=== PATIENT | female | born 1970 | race Caucasian/White ===

== ENCOUNTER → 2017-12-31 | Day surgery (SDC) | payer BC ==
[2017-12-25 13:28] LABS: BASOPHILS % 0.3 % (0.0-1.0); EOSINOPHILS # (AUTO) 0.1 (0.0-0.4); EOSINOPHILS % 1.6 % (0.0-6.0); HEMATOCRIT 38.6 % (34.2-44.1); HEMOGLOBIN 13.2 g/dL (12.0-16.0); LYMPHOCYTES # (AUTO) 1.6 (1.0-3.2); LYMPHOCYTES % 22.8 % (18.0-39.1); MEAN CORPUSCULAR HEMOGLOBIN 31.1 pg (28-32); MEAN CORPUSCULAR HGB CONC 34.2 g/dL (31-35); MONOCYTES # (AUTO) 0.4 (0.2-0.8); MONOCYTES % 5.2 % (4.4-11.3); NEUTROPHILS # (AUTO) 4.9 (2.1-6.9); NEUTROPHILS % 69.8 % (38.7-80.0); PLATELET COUNT 160 x10e3/uL (140-360); RED BLOOD COUNT 4.24 x10e6/uL (3.6-5.1)
[~2017-12-31] MED LIST: ATENOLOL50 MG PO; FENTANYL CITRATE/PF 100MCG/2 ML INJ ONE; LEVOTHYROXINE25 MCG PO; METOPROLOL TART50 MG PO; MIDAZOLAM HCL 2 MG/2 ML VIAL ONE; OMEPRAZOLE40 MG PO; PROPOFOL IV EMULSION 10 MG/ML 20 ML VIAL ONE
--- NOTE | 2017-12-31 15:07 | Operative Report ---
DATE OF PROCEDURE: December 31, 2017 REFERRING PHYSICIAN: Dr. Alma Larsen PROCEDURE PERFORMED: Esophagogastroduodenoscopy with biopsies. INDICATIONS FOR EGD: Upper abdominal pain, bloating, nausea. MEDICATION: Patient was done under MAC. Please see anesthesiologist's note. PROCEDURE: With the patient in the left lateral decubitus position, the flexible fiberoptic Olympus gastroscope was introduced into the esophagus under direct visualization without any difficulty. There was some patchy erythema noted in the distal esophagus. The scope was then advanced with ease into the stomach. Mucosa overlying the antrum and the body revealed some patchy erythema and moderate edema, and biopsies were obtained and sent to stain for H. pylori. Several hyperplastic-appearing polyps were noted in the body of the stomach, and some were partially excised with cold biopsy forceps. Pylorus appeared to be of normal contour and shape. It was intubated with ease, and the scope was advanced all the way to the 2nd portion of the duodenum. Biopsies were obtained from the proximal 2nd portion to rule out sprue. Mucosa overlying the duodenal bulb appeared to be within normal limits. The scope was then withdrawn back into the stomach and retroflexed. The mucosa overlying the fundus and the cardia appeared to be within normal limits. The scope was then straightened out. The stomach was decompressed. Scope was subsequently withdrawn. Patient tolerated the procedure well. IMPRESSION 1. Distal esophagitis, mild. 2. Gastritis, biopsied. Biopsy sent to stain for H. pylori. 3. Gastric polyps, body, some partially excised with cold biopsy forceps. 4. Rule out sprue. PLAN: Follow up histology. Increase Protonix to 40 mg 1 p.o. a.c. b.i.d. Job#: [id number] cc:ALMA LARSEN DO
== END | disposition home or self-care (01) ==
LOC: OR 11:58
PROVIDERS: ATTEND Internal Medicine Gastroenterology
DX: K29.70 Gastritis, unspecified, without bleeding (principal); K31.7 Polyp of stomach and duodenum; K20.9 Esophagitis, unspecified; K21.9 Gastro-esophageal reflux disease without esophagitis; K76.0 Fatty (change of) liver, not elsewhere classified; E03.9 Hypothyroidism, unspecified; R03.0 Elevated blood-pressure reading, without diagnosis of hypertension; Z88.6 Allergy status to analgesic agent; Z01.812 Encounter for preprocedural laboratory examination; Z68.34 Body mass index [BMI] 34.0-34.9, adult
CPT/HCPCS: 36415; 43239; 81025; 85025; J2250

== ENCOUNTER 2018-04-14 11:11 | Outpatient (RCR) | payer OTHER ==
[~2018-04-14 11:11] MED LIST changes: +COLLAGENASE OINTMENT 30 GM TUBE ONE; -FENTANYL CITRATE/PF 100MCG/2 ML INJ ONE; +LIDOCAINE/PRILOCAINE 2.5-2.5% KIT ONE; -MIDAZOLAM HCL 2 MG/2 ML VIAL ONE; +MUPIROCIN 2% OINT 22 GM TUBE ONE; -PROPOFOL IV EMULSION 10 MG/ML 20 ML VIAL ONE
[2018-04-14] MEDS ORDERED: COLLAGENASE OINTMENT 30 GM TUBE ONE (11:56)
[2018-04-14] MEDS ORDERED: MUPIROCIN 2% OINT 22 GM TUBE ONE (11:56)
[2018-04-14] MEDS ORDERED: LIDOCAINE/PRILOCAINE 2.5-2.5% KIT ONE (11:56)
== END 2018-04-16 ==
LOC: WCC 11:11
PROVIDERS: ATTEND Family Medicine
DX: S51.801A Unspecified open wound of right forearm, initial encounter (principal); S51.851A Open bite of right forearm, initial encounter; E03.9 Hypothyroidism, unspecified; K21.9 Gastro-esophageal reflux disease without esophagitis

== ENCOUNTER 2018-05-05 11:27 | Outpatient (RCR) | payer OTHER ==
[~2018-05-05 11:27] MED LIST changes: -COLLAGENASE OINTMENT 30 GM TUBE ONE; -LIDOCAINE/PRILOCAINE 2.5-2.5% KIT ONE; -MUPIROCIN 2% OINT 22 GM TUBE ONE
== END 2018-05-17 ==
LOC: WCC 11:27
PROVIDERS: ATTEND Family Medicine
DX: S51.801A Unspecified open wound of right forearm, initial encounter (principal); S51.851A Open bite of right forearm, initial encounter; E03.9 Hypothyroidism, unspecified; K21.9 Gastro-esophageal reflux disease without esophagitis

== ENCOUNTER 2018-06-16 09:16 | Outpatient (RCR) | payer OTHER | END 2018-06-17 | LOC: WCC 09:16 | PROVIDERS: ATTEND Family Medicine | DX: S51.801A Unspecified open wound of right forearm, initial encounter (principal); S51.851A Open bite of right forearm, initial encounter; E03.9 Hypothyroidism, unspecified; K21.9 Gastro-esophageal reflux disease without esophagitis ==

== ENCOUNTER 2018-07-14 02:00 | Outpatient (RCR) | payer OTHER | END 2018-07-15 | LOC: WCC 02:00 | PROVIDERS: ATTEND Family Medicine | DX: S51.851A Open bite of right forearm, initial encounter (principal); E03.9 Hypothyroidism, unspecified; F43.11 Post-traumatic stress disorder, acute; K21.9 Gastro-esophageal reflux disease without esophagitis ==

== ENCOUNTER 2018-08-11 11:11 | Outpatient (RCR) | payer OTHER | END 2018-08-15 | LOC: WCC 11:11 | PROVIDERS: ATTEND Family Medicine | DX: S51.801A Unspecified open wound of right forearm, initial encounter (principal); S51.851A Open bite of right forearm, initial encounter; E03.9 Hypothyroidism, unspecified; F43.11 Post-traumatic stress disorder, acute; K21.9 Gastro-esophageal reflux disease without esophagitis ==

== ENCOUNTER 2018-09-01 14:29 | Outpatient (RCR) | payer OTHER | END 2018-09-14 | LOC: WCC 14:29 | PROVIDERS: ATTEND Family Medicine | DX: S51.851A Open bite of right forearm, initial encounter (principal); E03.9 Hypothyroidism, unspecified; F43.11 Post-traumatic stress disorder, acute; K21.9 Gastro-esophageal reflux disease without esophagitis ==

== ENCOUNTER 2018-09-22 15:05 | Outpatient (RCR) | payer OTHER | END 2018-10-15 | LOC: WCC 15:05 | PROVIDERS: ATTEND Family Medicine | DX: S51.851A Open bite of right forearm, initial encounter (principal); E03.9 Hypothyroidism, unspecified; F43.11 Post-traumatic stress disorder, acute; K21.9 Gastro-esophageal reflux disease without esophagitis ==

== ENCOUNTER → 2019-03-28 | Day surgery (SDC) | payer BC ==
[2019-03-24 10:55] LABS: ANION GAP 14.9 mmol/L (8-16); BLOOD UREA NITROGEN 9 mg/dL (7-26); BUN/CREATININE RATIO 10 (6-25); CALCIUM 8.6 mg/dL (8.4-10.2); CARBON DIOXIDE 25 mmol/L (22-29); CHLORIDE 100 mmol/L (98-107); CREATININE, SERUM 0.91 mg/dL (0.57-1.11); EST GLOMERULAR FILTRATION RATE > 60 ML/MIN (60-); GLUCOSE 200 mg/dL (74-118); POTASSIUM 3.9 mmol/L (3.5-5.1); SODIUM 136 mmol/L (136-145)
[~2019-03-28] MED LIST changes: +FENTANYL CITRATE/PF 100MCG/2 ML INJ ONE; +INSULIN REGULAR, HUMAN 100 UNIT/1 ML 3ML VIAL ONE; +METFORMIN HCL500 M2 PO; +MIDAZOLAM HCL 2 MG/2 ML VIAL ONE; +PROPOFOL IV EMULSION 10 MG/ML 20 ML VIAL ONE
--- OUTSIDE RECORDS SUMMARY | 2019-03-28 06:09 | XMS REPORT ---
Author Author [facility] Address Unknown Phone Unavailable Care Team Providers Care Assembly Machine Tool Setter Name Role Phone ELIDA LOYD Unavailable Unavailable Problems This patient has no known problems. Allergies, Adverse Reactions, Alerts This patient has no known allergies or adverse reactions. Medications This patient has no known medications. Encounters Start Date/Time End Date/Time Encounter Type Admission Type Attending Clinicians Care Facility Care Department Encounter ID 2018-03-06 17:24:00 2018-03-06 17:24:00 Emergency E [facility] [id number] Results Test Description Test Time Test Comments Text Results Atomic Results Result Comments FOREARM RIGHT 2 VIEW 2018-05-27 12:04:00 [place] [address] Patient Name: ABIMBOLA HENDRIX MR #: [id number] : 1970 Age/Sex: 47/F Req #: [id number] Adm Physician: Ordered by: ELIDA LOYD MD Report #: [id number] Location: [facility] Room/Bed: Procedure: [id number] DX/FOREARM RIGHT 2 VIEW Exam Date: 05/27/18 Exam Time: 1130 REPORT STATUS: Signed Exam: right forearm AP and lateral. History: St atus post dog bite Comparison: None. Findings: There is normal bone mineralization. No acute, displaced fracture or dislocation. Joint spaces preserved. No abnormal soft tissue calcification or soft tissue defect. No soft tissue swelling or significant soft tissue defect. Impression: 1. No acute abnormalities. Signed by: Dr. Estuardo Garcia M.D. on 05/27/2018 12:04 PM Dictated By: ESTUARDO GARCIA MD 03 Transcribed By: JADEN on 05/27/181203 COPY TO: ELIDA LOYD MD WRIST COMPLETE RIGHT 2018-05-27 12:03:00 [place] [address] Patient Name: ABIMBOLA HENDRIX MR #: [id number] : 1970 Age/Sex: 47/F Req #: [id number] Adm Physician: Ordered by: ELIDA LOYD MD Report #: [id number] Location: [facility] Room/Bed: Procedure: [id number] DX/WRIST COMPLETE RIGHT Exam Date: 05/27/18 Exam Time: 1130 REPORT STATUS: Signed Exam: Right wrist Series. History: Status post d og bite Comparison: None. Findings: 3 views of the right wrist. There is normal bone mineralization. Negative for acute, displaced fracture or dislocation. The joint spaces are preserved. No abnormal soft tissue calcification or mass. No soft tissue swelling or soft tissue defect.. Impression: 1. Unremarkable right wrist series. Signed by: Dr. Estuardo Garcia M.D. on 05/27/2018 12:04 PM Dictated By: ESTUARDO GARCIA MD 03 Transcribed By: JADEN on 05/27/181203 COPY TO: ELIDA LOYD MD
[2019-03-28 08:45] VITALS: BP 112/80
--- NOTE | 2019-03-28 09:36 | Operative Report ---
DATE OF PROCEDURE: 03/28/2019 SURGEON: Hugo Trammell MD PREOPERATIVE DIAGNOSES: 1. Hiatal hernia. 2. Chronic gastroesophageal reflux disease. POSTOPERATIVE DIAGNOSES: 1. Hiatal hernia. 2. Chronic gastroesophageal reflux disease. 3. Distal gastritis. PREOPERATIVE INDICATION: Assess for mucosal disease. PROCEDURES: Esophagogastroduodenoscopy with distal gastric biopsy x2 (CPT 88423). ANESTHESIA: Moderate sedation with IV propofol. ASSISTANTS: None. FLUIDS: As per anesthesia. ESTIMATED BLOOD LOSS: Minimal. DRAINS: None. COMPLICATIONS: None. SPECIMENS: Gastric antral biopsies x2 with cold forceps. GRAFTS: None. FINDINGS: 1. Moderate size hiatal hernia. 2. Distal gastritis in the prepyloric/antral region. DESCRIPTION OF PROCEDURE: The patient was brought to the endoscopy suite and was sedated with IV propofol. A preprocedure pause was performed. An adult-sized endoscope was introduced to the oropharynx and guided to the 2nd portion of the duodenum. No duodenal abnormalities were noted. There was streaky gastritis and erythema in the distal stomach, which was biopsied x2 with cold forceps. There was a hiatal hernia present as we had known prior to the procedure. Prior to removing the endoscope, the stomach was desufflated. The patient tolerated the procedure well. Type of wound is type 1, clean. Hugo Trammell MD [facility] /[id number]
== END | disposition home or self-care (01) ==
LOC: OR 06:02
PROVIDERS: ATTEND Surgery
DX: K21.9 Gastro-esophageal reflux disease without esophagitis (principal); K29.70 Gastritis, unspecified, without bleeding; K25.9 Gastric ulcer, unspecified as acute or chronic, without hemorrhage or perforation; K44.9 Diaphragmatic hernia without obstruction or gangrene; G58.9 Mononeuropathy, unspecified; I10 Essential (primary) hypertension; I83.90 Asymptomatic varicose veins of unspecified lower extremity; I49.3 Ventricular premature depolarization; E03.9 Hypothyroidism, unspecified; E11.9 Type 2 diabetes mellitus without complications; E66.01 Morbid (severe) obesity due to excess calories; Z91.013 Allergy to seafood; Z01.810 Encounter for preprocedural cardiovascular examination; Z01.812 Encounter for preprocedural laboratory examination; Z79.84 Long term (current) use of oral hypoglycemic drugs; Z68.34 Body mass index [BMI] 34.0-34.9, adult
CPT/HCPCS: 36415 ×2; 43239; 80048; 81025; 82948; 93005; J2250; J2704; J3010; 43235; J1817

== ENCOUNTER 2019-06-29 10:09 | Outpatient (RCR) | payer OTHER ==
[~2019-06-29 10:09] MED LIST changes: -FENTANYL CITRATE/PF 100MCG/2 ML INJ ONE; -INSULIN REGULAR, HUMAN 100 UNIT/1 ML 3ML VIAL ONE; -MIDAZOLAM HCL 2 MG/2 ML VIAL ONE; -PROPOFOL IV EMULSION 10 MG/ML 20 ML VIAL ONE
== END 2019-07-16 ==
LOC: OT 10:09
PROVIDERS: ATTEND Family Medicine
DX: R29.898 Other symptoms and signs involving the musculoskeletal system (principal)

== ENCOUNTER → 2019-08-05 | Outpatient (CLI) | payer BC ==
[~2019-08-05] MED LIST changes: +METFORMIN HCL500 MG PO
[2019-08-05 15:55] LABS: BASOPHILS % 0.4 % (0.0-1.0); EOSINOPHILS # (AUTO) 0.1 (0.0-0.4); EOSINOPHILS % 1.1 % (0.0-6.0); HEMATOCRIT 43.2 % (34.2-44.1); HEMOGLOBIN 14.5 g/dL (12.0-16.0); LYMPHOCYTES # (AUTO) 1.9 (1.0-3.2); LYMPHOCYTES % 26.8 % (18.0-39.1); MEAN CORPUSCULAR HEMOGLOBIN 31.5 pg (28-32); MEAN CORPUSCULAR HGB CONC 33.6 g/dL (31-35); MEAN CORPUSCULAR VOLUME 93.7 fL (81-99); MONOCYTES # (AUTO) 0.3 (0.2-0.8); MONOCYTES % 4.2 % (4.4-11.3); NEUTROPHILS # (AUTO) 4.8 (2.1-6.9); NEUTROPHILS % 67.1 % (38.7-80.0); PLATELET COUNT 128 x10e3/uL (140-360); RED BLOOD COUNT 4.61 x10e6/uL (3.6-5.1); RED CELL DISTRIBUTION WIDTH 12.8 % (11.7-14.4)
[2019-08-05 16:41] LABS: ANION GAP 12.8 mmol/L (8-16); BLOOD UREA NITROGEN 6 mg/dL (7-26); BUN/CREATININE RATIO 8 (6-25); CALCIUM 8.7 mg/dL (8.4-10.2); CARBON DIOXIDE 29 mmol/L (22-29); CHLORIDE 100 mmol/L (98-107); CREATININE, SERUM 0.75 mg/dL (0.57-1.11); EST GLOMERULAR FILTRATION RATE > 60 ML/MIN (60-); GLUCOSE 173 mg/dL (74-118); POTASSIUM 3.8 mmol/L (3.5-5.1); SODIUM 138 mmol/L (136-145)
== END ==
LOC: DX 15:29 → EDSTATUS 08-08 07:30
PROVIDERS: ATTEND Surgery
DX: Z01.818 Encounter for other preprocedural examination (principal); K44.9 Diaphragmatic hernia without obstruction or gangrene; E66.01 Morbid (severe) obesity due to excess calories
CPT/HCPCS: 36415; 80048; 85025; 93005

== ENCOUNTER 2019-09-26 06:55 | Inpatient (IN) | payer BC, OTHER ==
[2019-09-22 14:55] LABS: BASOPHILS % 0.5 % (0.0-1.0); EOSINOPHILS # (AUTO) 0.1 (0.0-0.4); EOSINOPHILS % 1.6 % (0.0-6.0); HEMATOCRIT 38.8 % (34.2-44.1); HEMOGLOBIN 13.1 g/dL (12.0-16.0); LYMPHOCYTES # (AUTO) 1.8 (1.0-3.2); LYMPHOCYTES % 29.1 % (18.0-39.1); MEAN CORPUSCULAR HEMOGLOBIN 30.8 pg (28-32); MEAN CORPUSCULAR HGB CONC 33.8 g/dL (31-35); MEAN CORPUSCULAR VOLUME 91.1 fL (81-99); MONOCYTES # (AUTO) 0.3 (0.2-0.8); MONOCYTES % 4.7 % (4.4-11.3); NEUTROPHILS # (AUTO) 4.1 (2.1-6.9); NEUTROPHILS % 63.9 % (38.7-80.0); PLATELET COUNT 122 x10e3/uL (140-360); RED BLOOD COUNT 4.26 x10e6/uL (3.6-5.1); RED CELL DISTRIBUTION WIDTH 12.9 % (11.7-14.4)
[2019-09-22 15:09] LABS: ANION GAP 10.9 mmol/L (8-16); BLOOD UREA NITROGEN 8 mg/dL (7-26); BUN/CREATININE RATIO 9 (6-25); CALCIUM 8.8 mg/dL (8.4-10.2); CARBON DIOXIDE 29 mmol/L (22-29); CHLORIDE 100 mmol/L (98-107); CREATININE, SERUM 0.94 mg/dL (0.57-1.11); EST GLOMERULAR FILTRATION RATE > 60 ML/MIN (60-); GLUCOSE 268 mg/dL (74-118); POTASSIUM 3.9 mmol/L (3.5-5.1); SODIUM 136 mmol/L (136-145)
[~2019-09-26] VITALS: Ht 170.2 cm; Wt 92.5 kg
[2019-09-26] MEDS ORDERED: LIDOCAINE HCL (LTA) 4 ML SOLN ONE (07:02)
[2019-09-26] MEDS ORDERED: SUGAMMADEX SODIUM 200 MG/2 ML VIAL IV ONE (07:02)
[2019-09-26] MEDS ORDERED: SCOPOLAMINE 1.5 MG PATCH ONE (07:02)
[2019-09-26] MEDS ORDERED: ACETAMINOPHEN 1000 MG/100 ML 100 ML IV ONE (07:02)
--- OUTSIDE RECORDS SUMMARY | 2019-09-26 07:06 | XMS REPORT | Summary of Care ---
Author Author [facility] Address Unknown Phone Unavailable Care Team Providers Care Supplies Packer Name Role Phone Vijay Nunez PCP Reason for Visit * Reason Comments Results Encounter Details Care Team Description Date Type Department Juan Holm MD [address] [facility] [address] [place] [address] Results 09/09/2019 Telephone [facility] - Apartment Leasing Consultant, [address] [address] Allergies No Known Allergiesdocumented as of this encounter (statuses as of 09/09/2019) Medications End Date Status Medication Sig Dispensed Refills Start Date Active levothyroxine (LEVOXYL) Take 75 mcg 0 75 mcg tablet by mouth every morning. Active omeprazole 40 mg capsule Take 40 mg by 0 mouth daily. documented as of this encounter (statuses as of 09/09/2019) Active Problems Not on filedocumented as of this encounter (statuses as of 09/09/2019) Social History Date Tobacco Use Types Packs/Day Years Used Never Assessed Sex Assigned at Date Recorded Not on file Industry Job Start Date Occupation Not on file Not on file Not on file Travel End Travel History Travel Start No recent travel history available. Date Recorded COVID-19 Exposure Response 09/09/2019 5:40 AM CDT In the last month, have you been in contact with No / Unsure someone who was confirmed or suspected to have Coronavirus / COVID-19? documented as of this encounter Last Filed Vital Signs Not on filedocumented in this encounter Plan of Treatment Health Maintenance Due Date Last Done Comments DTaP,Tdap,and Td Vaccines 07/22/1982 (1 - Tdap) PAP SMEAR 07/22/1992 Breast Cancer Screening 2011 (MAMMOGRAM) INFLUENZA VACCINE (#1) 2019 PNEUMOCOCCAL 0-64 YEARS Aged Out No longer elig ible based COMBINED SERIES on patient's age to complete this topic documented as of this encounter Results Not on filedocumented in this encounter Insurance Type Payer Benefit Subscriber ID Effective Phone Address Plan / Dates Group PPO/POS BCBS [facility] BCBS FED [id number] 2004-P [phone] [address] [employer] [place] [id number] [place] [address] documented as of this encounter
--- OUTSIDE RECORDS SUMMARY | 2019-09-26 07:06 | XMS REPORT | Summary of Care ---
Author Author [facility] Organization [facility] Address Unknown Phone Unavailable Care Team Providers Care Wrapper Stemmer Hand Name Role Phone Vijay Nunez PCP Reason for Visit * Reason Comments Results Encounter Details Care Team Description Date Type Department Juan Holm MD [address] [facility] [address] [place] [address] Results 09/09/2019 Telephone [facility] Heart C enter - Community Life Director, [address] [address] Allergies No Known Allergiesdocumented as [...] Address Plan / Dates Group PPO/POS BCBS [facility] BCBS FED [id number] 2004-P [phone] [address] [employer] resent [id number] [place] [address] documented as of this encounter
--- OUTSIDE RECORDS SUMMARY | 2019-09-26 07:06 | XMS REPORT | Summary of Care ---
Author Author [facility] Organization [facility] Address Unknown Phone Unavailable Encounter HQ Margo(FIN) [id number] Date(s): 03/06/18 - 03/06/18 [facility] [address] [employer] provided by [facility] [employer] [facility] [place] [address]- Encounter Diagnosis Dog bite of arm (Discharge Diagnosis) - 03/06/18 Open bite of right forearm, initial encounter (Final) - 03/12/18 Bitten by dog, initial encounter (Final) - Hypothyroidism, unspecified (Final) - Discharge Disposition: Home or Self Care Attending Physician: Yary Yen MD Vital Signs Most recent to 1 2 oldest [Reference Range]: Height 170.18 cm (03/06/18 5:25 PM) Temperature Oral 98.2 DegF 97 DegF [96.4-99.1 DegF] (03/06/18 8:10 PM) (03/06/18 5:25 PM) Blood Pressure 115/57 mmHg 175/92 mmHg [90-140/60-90 mmHg] (03/06/18 8:10 PM) *HI* (03/06/18 5:25 PM) Respiratory Rate 18 BRMIN 18 BRMIN [14-20 BRMIN] (03/06/18 8:10 PM) (03/06/18 5:25 PM) Peripheral Pulse 90 bpm 88 bpm Rate [60-100 bpm] (03/06/18 8:10 PM) (03/06/18 5:25 PM) Weight 93.182 kg (03/06/18 5:25 PM) Body Mass Index 32.17 m2 (03/06/18 5:25 PM) Problem List Condition Effective Dates Status Health Status Informan t Hypothyroidism(Confi Resolved rmed) Pinched Resolved nerve(Confirmed) Allergies, Adverse Reactions, Alerts No Known Medication Allergies Medications Augmentin 875 mg oral tablet 875 mg = 1 tab, PO, BID, X 7 day, # 14 tab, 0 Refill(s) Start Date: 03/06/18 Stop Date: 03/13/18 Status: Completed morphine Sulfate 4 mg, 1 mL, Route: IVP, Drug form: SOLN, ONCE, Dosing Weight 93.182, kg, Priorit y: STAT, Start date: 03/06/18 17:39:00 CDT, Stop date: 03/06/18 17:39:00 CDT Notes: (Same as:MORPhine Sulfate) Start Date: 03/06/18 Stop Date: 03/06/18 Status: Completed [place] 10/325 oral tablet 1 tab, Route: PO, Drug Form: TAB, Dosing Weight 93.182, kg, ONCE, STAT, Start da te: 03/06/18 18:03:00 CDT, Stop date: 03/06/18 18:03:00 CDT Notes: Do not exceed 4gm/day of acetaminophen. (Same as: [place] 325/10) Start Date: 03/06/18 Stop Date: 03/06/18 Status: Completed tramadol 50 mg oral tablet 50 mg = 1 tab, PO, Q6H, PRN Pain, X 5 day, # 20 tab, 0 Refill(s) Start Date: 03/06/18 Stop Date: 03/11/18 Status: Completed Zofran 4 mg, 2 mL, Route: IVP, Drug form: INJ, ONCE, Dosing Weight 93.182, kg, Priority : STAT, Start date: 03/06/18 17:39:00 CDT, Stop date: 03/06/18 17:39:00 CDT Notes: (Same as: Zofran) MEDICATION WASTE Product Size: 4 mgProduct Was odilia: 0 mg Start Date: 03/06/18 Stop Date: 03/06/18 Status: Completed Zofran ODT 4 mg, Route: PO, Drug form: TABDIS, ONCE, Dosing Weight 93.182, kg, Priority: ST AT, Start date: 03/06/18 20:26:00 CDT, Stop date: 03/06/18 20:26:00 CDT Start Date: 03/06/18 Stop Date: 03/06/18 Status: Completed Results Most recent to 1 oldest [Reference Range]: [facility] HIV 4th GEN Negative [Negative] *NA* (03/06/18 6:31 PM) Neutrophils # 4.7 K/CMM [1.5-8.1 K/CMM] (03/06/18 6:31 PM) Lymphocytes # 1.1 K/CMM [1.0-5.5 K/CMM] (03/06/18 6:31 PM) Monocytes # [0.0-0.8 0.3 K/CMM K/CMM] (03/06/18 6:31 PM) Eosinophils # 0.1 K/CMM [0.0-0.5 K/CMM] (03/06/18 6:31 PM) eGFR 70 mL/min/1.73m2 1 *NA* (03/06/18 6:31 PM) AGAP [10.0-20.0 12.2 mEq/L mEq/L] (03/06/18 6:31 PM) Basophils [0.0-1.0 0.5 % %] (03/06/18 6:31 PM) BUN [7-22 mg/dL] 7 mg/dL (03/06/18 6:31 PM) Calcium Lvl 7.9 mg/dL [8.5-10.5 mg/dL] *LOW* (03/06/18 6:31 PM) Chloride Lvl [95-109 103 mEq/L mEq/L] (03/06/18 6:31 PM) CO2 [24-32 mEq/L] 28 mEq/L (03/06/18 6:31 PM) Creatinine Lvl 0.97 mg/dL [0.50-1.40 mg/dL] (03/06/18 6:31 PM) Eosinophils [0.0-4.0 1.2 % %] (03/06/18 6:31 PM) Glucose Lvl [70-99 196 mg/dL mg/dL] *HI* (03/06/18 6:31 PM) Hct [36.0-48.0 %] 35.6 % *LOW* (03/06/18 6:31 PM) Hgb [12.0-16.0 g/dL] 12.2 g/dL (03/06/18:31 PM) INR [0.85-1.17] 1.00 (03/06/18:31 PM) Potassium Lvl 3.2 mEq/L [3.5-5.1 mEq/L] *LOW* (03/06/1831 PM) Lymphocytes 18.5 % [20.0-40.0 %] *LOW* (03/06/1831 PM) MCH [27.0-31.0 pg] 30.8 pg (03/06/18:31 PM) MCHC [32.0-36.0 34.3 g/dL g/dL] (03/06/18:31 PM) MCV [80.0-98.0 fL] 89.8 fL (03/06/1831 PM) Monocytes [2.0-12.0 4.3 % %] (03/06/18:31 PM) MPV [7.4-10.4 fL] 9.6 fL (03/06/18 PM) Sodium Lvl [135-145 140 mEq/L mEq/L] (03/06/18:31 PM) Platelet [133-450 131 K/CMM K/CMM] *LOW* (03/06/18:31 PM) Segs [45.0-75.0 %] 75.5 % *HI* (03/06/18:31 PM) PT [12.0-14.7 13.2 seconds seconds] (03/06/18:31 PM) PTT [22.9-35.8 28.9 seconds seconds] (03/06/18:31 PM) RBC [4.20-5.40 3.97 M/CMM M/CMM] *LOW* (03/06/1831 PM) RDW [11.5-14.5 %] 13.6 % (03/06/18:31 PM) WBC [3.7-10.4 K/CMM] 6.2 K/CMM (03/06/18:31 PM) 1Result Comment: The eGFR is calculated using the CKD-EPI formula. In most young, healthy individuals the eGFR will be >90 mL/min/1.73m2. The eGFR declines with age. An eGFR of 60-89 may be normal in some populations, particularly the elderly, for whom the CKD-EPI formula has not been extensively validated. Use of the eGFR is not recommended in the following populations: Individuals with unstable creatinine concentrations, including patients and those with serious co-morbid conditions. Patients with extremes in muscle mass or diet. The data above are obtained from the National Kidney Disease Education Program ( NKDEP) which additionally recommends that when the eGFR is used in patients with extremes of body mass index for purposes of drug dosing, the eGFR should be mul tiplied by the estimated BMI. Immunizations Given and Recorded Vaccine Date Status Refusal Reason diphtheria/pertussis, acel/tetanus adult 03/06/18 Given Procedures No data available for this section Social History Social History Type Response Smoking Status Never smoker; Exposure to T obacco Smoke None; Cigarette Smoking Last 365 Days No; Reg Smoking Cessation Counseli ng No entered on: 03/06/18 Assessment and Plan No data available for this section
--- OUTSIDE RECORDS SUMMARY | 2019-09-26 07:06 | XMS REPORT | Summary of Care ---
Author Author [facility] Organization [facility] Address Unknown Phone Unavailable Encounter YNES Aragon(YANG) [id number] Date(s): 12/30/14 - 12/30/14 [facility] [address] [place] [address]- Discharge Diagnosis: Injury of forearm and wrist Discharge Disposition: Home Attending Physician: Deborah Hoyt DO Vital Signs Most recent to 1 2 oldest [Reference Range]: Height 170.18 cm (12/30/14 12:32 PM) Most recent to 1 2 oldest [Reference Range]: Temperature Oral 98.1 DegF 97.5 DegF [96.4-99.1 DegF] (12/30/14 2:17 PM) (12/30/14 12:32 PM) Most recent to 1 2 oldest [Reference Range]: Blood Pressure 135/81 mmHg 149/90 mmHg [90-140/60-90 mmHg] (12/30/14 2:17 PM) *HI* (12/30/14 12:32 PM) Most recent to 1 2 oldest [Reference Range]: Respiratory Rate 20 BRMIN 18 BRMIN [14-20 BRMIN] (12/30/14 2:17 PM) (12/30/14 12:32 PM) Most recent to 1 2 oldest [Reference Range]: Peripheral Pulse 85 bpm 100 bpm Rate [60-100 bpm] (12/30/14 2:17 PM) (12/30/14 12:32 PM) Most recent to 1 2 oldest [Reference Range]: Weight 92.727 kg (12/30/14 12:32 PM) Most recent to 1 2 oldest [Reference Range]: Body Mass Index 32.02 m2 (12/30/14 12:32 PM) Problem List Condition Effective Dates Status Health Status Informan t Hypothyroidism(Confi Resolved rmed) Pinched Resolved nerve(Confirmed) Allergies, Adverse Reactions, Alerts Substance Reaction Severity Status NKDA Active Medications Ultram 50 mg oral tablet 1 - 2 tabs, PO, Q4-6H, PRN .(Type PRN Reason Here...), X 5 day, # 30 tab, 0 Refi ll(s) Start Date: 12/30/14 Stop Date: 01/04/15 Status: Ordered Results No data available for this section Immunizations No data available for this section Procedures No data available for this section Social History Social History Type Response Smoking Status Never smoker; Exposure to T obacco Smoke None; Cigarette Smoking Last 365 Days No; Reg Smoking Cessation Counseli ng No Assessment and Plan No data available for this section
--- OUTSIDE RECORDS SUMMARY | 2019-09-26 07:06 | XMS REPORT | Summary of Care ---
Author Author [facility] - [facility] Organization [facility] - [facility] Address Unknown Phone Unavailable Care Team Providers Care Behavioral Health Case Manager Name Role Phone FertileVijay garcia PCP Encounter Details Care Team Description Date Type Department Doctor Unassigned, [place] [address] [place] [id number] 09/15/2019 Orders Only [address] [address] Allergies No Known Allergiesdocumented as of this encounter (statuses as of 09/15/2019) Medications End Date Status Medication Sig Dispensed Refills Start Date Active levothyroxine (LEVOXYL) Take 75 mcg 0 75 mcg tablet by mouth every morning. Active omeprazole 40 mg capsule Take 40 mg by 0 mouth daily. documented as of this encounter (statuses as of 09/15/2019) Active Problems Not on filedocumented as of this encounter (statuses as of 09/15/2019) Social History Date Tobacco Use Types Packs/Day [...] this topic documented as of this encounter Procedures Comments Procedure Name Priority Date/Time Associated Diag nosis EXTERNAL PROVIDER RECORDS Routine 09/15/2019 12:01 AM CDT documented in this encounter Results Not on filedocumented in this encounter Insurance Type Payer Benefit Subscriber ID Effective Phone Address Plan / Dates Group PPO/POS BCBS [facility] BCBS FED [id number] 2004-P [phone] [address] [employer] resent [id number] [place] [address] documented as of this encounter
--- OUTSIDE RECORDS SUMMARY | 2019-09-26 07:06 | XMS REPORT | Continuity of Care Document ---
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 Discharge Diagnosis: Injury of forearm and wrist 12/30/2014 01/02/2015 [facility] V76.12 - SCREEN MAMMOGRA Active 07/21/2013 DARIANA Morrell 793.8 - ABNORMAL FINDIN Active 07/04/2011 DARIANA Morrell Bitten by dog, initial encounter 09/23/2018 [facility] Hypothyroidism, unspecified 09/23/2018 [facility] Hypothyroidism (disorder) Reso lved Problem 01/2019 [facility] [place] Compression injury of nerve (disorder) Resolved Problem 09/23/2018 [facility] Medications Medication Details Route Status Patient Instructions Ordering Provider Order Date Source Zofran ODT 4 mg, Route: PO, Dr ug form: TABDIS, ONCE, Dosing Weight 93.182, kg, Priority: STAT, Start date: 03/06/18 20:26:00 CDT, Stop date: 03/06/18 20:26:00 CDT Inactive 03/07/2018 [facility] nter tramadol hydrochloride 50 MG Oral Tablet 50 mg = 1 tab, PO, Q6H, PRN Pain, X 5 day, # 20 tab, 0 Refill(s) No Longer Active 03/07/2018 [facility] Amoxicillin 875 MG / Clavulanate 125 MG Oral Tablet [Augmentin 875-mg] 875 mg = 1 tab, PO, BID, X 7 day, # 14 t ab, 0 Refill(s) No Longer Active 03/07/2018 [facility] Acetaminophen 325 MG / Hydrocodone Amy trate 10 MG Oral Tablet [[place] 10/325] Notes: Do not exceed 4gm/day of acetamin ophen. (Same as: [place] 325/10) Inactive 03/06/2018 [facility] Morphine Notes: (Same as:MORPh ine Sulfate) Inactive 03/06/2018 [facility] Zofran Notes: (Same as: Zofran ) MEDICATION WASTE Product Size: 4 mg Product Wasted: 0 mg Inactive 03/06/2018 [facility] nter tramadol hydrochloride 50 MG Oral Tablet [Ultram] 1 - 2 tabs, PO, Q4-6H, PRN .(Type PRN Reason Here...), X 5 day, # 30 tab, 0 Refill(s) Active 12/30/2014 [facility] Allergies, Adverse Reactions, Alerts Substance Category Reaction Severity Reaction type Status Date Reported Comments Source No Known Medication Allergies Assertion Drug aller gy [facility] Immunizations Immunization Date Given Site Status Last Updated Comments Source diphtheria/pertussis, acel/tetanus adult 03/06/2018 Left deltoid completed [facility] Results Order Name Results Value Reference Range Date Interpretation Comments Source CHEM PANEL eGFR 70 03/06/2018 Result Comment: The eGFR is calculated using the [...] from the National Kidney Disease Education Program (NKDEP) which additionally recommends that when the eGFR is used in patients with extremes of body mass index for purposes of drug dosing, the eGFR should be multiplied by the estimated BMI. [facility] CHEM PANEL Sodium Lvl 140 135 - 145 03/06/2018 [facility] CHEM PANEL Creatinine Lvl 0.97 0.50 - 1.40 03/06/2018 [facility] CHEM PANEL CO2 28 24 - 32 03/06/2018 [facility] CHEM PANEL Chloride Lvl 103 95 - 109 03/06/2018 [facility] CHEM PANEL Potassium Lvl 3.2 3.5 - 5.1 03/06/2018 [facility] CHEM PANEL Calcium Lvl 7.9 8.5 - 10.5 03/06/2018 [facility] CHEM PANEL BUN 7 7 - 22 03/06/2018 [facility] CHEM PANEL Glucose Lvl 196 70 - 99 03/06/2018 [facility] CHEM PANEL AGAP 12.2 10.0 - 20.0 03/06/2018 [facility] HEMATOLOGY Eosinophils # 0.1 0.0 - 0.5 03/06/2018 [facility] HEMATOLOGY Monocytes # 0.3 0.0 - 0.8 03/06/2018 [facility] HEMATOLOGY Lymphocytes 18.5 20.0 - 40.0 03/06/2018 [facility] HEMATOLOGY Monocytes 4.3 2.0 - 12.0 03/06/2018 [facility] HEMATOLOGY Eosinophils 1.2 0.0 - 4.0 03/06/2018 [facility] HEMATOLOGY Basophils 0.5 0.0 - 1.0 03/06/2018 [facility] HEMATOLOGY Segs 75.5 45.0 - 75.0 03/06/2018 [facility] HEMATOLOGY Lymphocytes # 1.1 1.0 - 5.5 03/06/2018 [facility] HEMATOLOGY Neutrophils # 4.7 1.5 - 8.1 03/06/2018 [facility] HEMATOLOGY PTT 28.9 22.9 - 35.8 03/06/2018 [facility] HEMATOLOGY INR 1.00 0.85 - 1.17 03/06/2018 [facility] HEMATOLOGY PT 13.2 12.0 - 14.7 03/06/2018 [facility] HEMATOLOGY WBC 6.2 3.7 - 10.4 03/06/2018 [facility] HEMATOLOGY Hgb 12.2 12.0 - 16.0 03/06/2018 [facility] HEMATOLOGY RBC 3.97 4.20 - 5.40 03/06/2018 [facility] HEMATOLOGY MCH 30.8 27.0 - 31.0 03/06/2018 [facility] HEMATOLOGY Hct 35.6 36.0 - 48.0 03/06/2018 [facility] HEMATOLOGY MCV 89.8 80.0 - 98.0 03/06/2018 [facility] HEMATOLOGY Platelet 131 133 - 450 03/06/2018 [facility] HEMATOLOGY MPV 9.6 7.4 - 10.4 03/06/2018 [facility] HEMATOLOGY MCHC 34.3 32.0 - 36.0 03/06/2018 [facility] HEMATOLOGY RDW 13.6 11.5 - 14.5 03/06/2018 [facility] IMMUNOLOGY CDC HIV 4th GEN Negat jesús *NA* (03/06/18 6:31 PM) Negative 03/06/2018 [facility] Pathology Reports No Data Provided for This Section Diagnostic Reports Report Value Date Source Forearm 2 views DX EXAM: XR RI GHT FOREARM 2 VIEWS DATE: 03/06/2018 5:39 PM CDT INDICATION: - dog bite to forearm COMPARISON: X-rays of the right wrist 12/30/2014. [place] SECTION: ER TECHNIQUE: AP and lateral radiographs of the forearm FINDINGS: No acute fracture or malalignment is identified. Soft tissue laceration is present within the mid to distal right forearm, with tracking of gas within the muscular fascia and subcutaneous fat. No radiopaque foreign bodies identified. IMPRESSION: Soft tissue laceration with gas in the forearm. No acute underlying fracture or malalignment. No radiopaque foreign body. 03/06/2018 [facility] Hand 3 views DX Right hand ser ies 3 views FINDINGS: There is no evidence for fracture dislocation or any significant soft tissue abnormality. No radiopaque foreign body is visualized. SL:13 12/30/2014 [facility] Wrist 2 views DX Right wrist series 3 views: FINDINGS: There is no evidence for fracture, subluxation or any significant soft tissue abnormality. No significant degenerative change is present and the visualized bones demonstrate normal radiodensity. SL:13 12/30/2014 [facility] Consultation Notes No Data Provided for This Section Discharge Summaries No Data Provided for This Section History and Physicals No Data Provided for This Section Vital Signs Vital Sign Value Date Comments Source Respitory Rate 18 03/07/2018 [facility] Heart Rate 90 03/07/2018 [facility] Temperature Oral (F) 98.2 F 03/07/2018 [facility] Systolic (mm Hg) 115 03/07/2018 [facility] Diastolic (mm Hg) 57 03/07/2018 [facility] BMI Calculated 32.17 03/06/2018 [facility] Weight 93.182 03/06/2018 [facility] Systolic (mm Hg) 175 03/06/2018 [facility] Diastolic (mm Hg) 92 03/06/2018 [facility] Respitory Rate 18 03/06/2018 [facility] Heart Rate 88 03/06/2018 [facility] Height 170.18 cm 03/06/2018 [facility] Temperature Oral (F) 97 F 03/06/2018 [facility] Systolic (mm Hg) 135 12/30/2014 [facility] Diastolic (mm Hg) 81 12/30/2014 [facility] Respitory Rate 20 12/30/2014 [facility] Temperature Oral (F) 98.1 F 12/30/2014 [facility] Heart Rate 85 12/30/2014 [facility] Height 170.18 cm 12/30/2014 [facility] BMI Calculated 32.02 12/30/2014 [facility] Weight 92.727 12/30/2014 [facility] Respitory Rate 18 12/30/2014 [facility] Systolic (mm Hg) 149 12/30/2014 [facility] Diastolic (mm Hg) 90 12/30/2014 [facility] Heart Rate 100 12/30/2014 [facility] Temperature Oral (F) 97.5 F 12/30/2014 [facility] Encounters Location Location Details Encounter Type Encounter Number Reason For Visit Attending Provider ADM Date DC Date Status Source OD [id number] 793.8 - ABNORMAL FINDIN KAYLEE GARCÍA 07/10/2011 [id number] Deborah Hoyt 12/30/2014 12/30/2014 [facility] [id number] Yayr Yen 03/06/2018 03/07/2018 [facility] Procedures No Data Provided for This Section Assessment and Plan No Data Provided for This Section Plan of Care No Data Provided for This Section Social History Social History Date Source Social History TypeResponse Smoking Status Never smoker; Exposure to Tobacco Smoke None; Cigarette Smoking Last 365 Days No; Reg Smoking Cessation Counseling No entered on: 03/06/18 03/06/2018 [facility] Social History TypeResponse Smoking Status Never smoker; Exposure to Tobacco Smoke None; Cigarette Smoking Last 365 Days No; Reg Smoking Cessation Counseling No 12/30/2014 [facility] Family History No Data Provided for This Section Advance Directives No Data Provided for This Section Functional Status No Data Provided for This Section
[2019-09-26] MEDS ORDERED: BUPIVACAINE 0.25% 30ML SDV INJ ONE (08:21)
[2019-09-26] MEDS ORDERED: MORPHINE SULFATE 2 MG/ML SYR 1ML IV PRN ×3 (10:15→22:45)
[2019-09-26] MEDS ORDERED: SCOPOLAMINE 1.5 MG PATCH TOP SCH ×2 (10:15→22:45)
[2019-09-26] MEDS: LACTATED RINGER'S 1,000 ML IV SCH ×4 (10:15→22:45)
[2019-09-26] MEDS ORDERED: ONDANSETRON HCL INJ 2MG/ML 2ML 2 MG/ML VIAL IV PRN ×2 (10:15→22:45)
--- NOTE | 2019-09-26 11:49 | Operative Report ---
DATE OF PROCEDURE: 09/26/2019 SURGEON: Hugo Trammell MD PREOPERATIVE DIAGNOSES: 1. Hiatal hernia. 2. Gastroesophageal reflux disease. 3. Morbid obesity, BMI 35. 4. Type 2 diabetes mellitus. 5. Hypertension. POSTOPERATIVE DIAGNOSES: 1. Hiatal hernia. 2. Gastroesophageal reflux disease. 3. Morbid obesity, BMI 35. 4. Type 2 diabetes mellitus. 5. Hypertension. PREOPERATIVE INDICATIONS: 1. Treat disease, prevent complications from hiatal hernia. 2. Treat disease, prevent complications from comorbid conditions of obesity. PROCEDURES: 1. Laparoscopic hiatal hernia repair. 2. Laparoscopic vertical sleeve gastrectomy. ANESTHESIA: General. LOG RAFT WORKER: Frandy Daugherty, hair or beauty salon assistant (needed due to complexity of case). FLUIDS: 800 mL of crystalloid. ESTIMATED BLOOD LOSS: 10 mL. DRAINS: None. COMPLICATIONS: None. SPECIMENS: Partial stomach. GRAFTS: None. FINDINGS: 1. Small hiatal hernia. 2. Negative intraoperative leak test. PROCEDURE IN DETAIL: The patient was brought to the operating room and was intubated under general endotracheal anesthesia. She was sterilely prepped and draped in the usual fashion. A preprocedure pause was performed identifying the patient, use of perioperative antibiotics, intended procedure, and staff surgeon. Access was gained via a 5 mm left subcostal incision using a Veress needle. The abdomen was insufflated. Four additional trocars were placed in a standard position. A liver retractor was used to expose the stomach and the hiatus. I began the dissection by incising the gastrohepatic ligament via the pars flaccida technique using the Harmonic Scalpel. I then was able to identify hiatal hernia and reduced this from the right and left davis of the diaphragm and was able to expose it anteriorly as well. Dissection was carried out into the thoracic cavity in order to reduce the hiatal hernia. I then repaired the crura with 2-0 Surgidac suture in an interrupted fashion. Next, I mobilized the greater curvature of the stomach from about 3 cm proximal to the pyloric valve to the left davis of the diaphragm using the [place] LigaSure device. We then inserted a 32-Jordanian insufflating bougie along the lesser curvature of stomach. The greater curvature of the stomach was resected with 5 firings of a 60 mm purple load Covidien stapling device. We did an intraoperative leak test. No leaks were identified. The 32-Jordanian bougie was then removed. We removed the specimen through the right periumbilical port site. The port site was closed with 0 Vicryl suture using the Daryl-Villarreal technique. We then verified hemostasis, removed the liver retractor and desufflated the abdomen. Incision sites were closed with 4-0 Monocryl suture in a subcuticular fashion. Dermabond dressings were applied. A 0.25% bupivacaine was used both at the preperitoneal incision sites. The patient tolerated the procedure well. Type of wound was type 2, clean, contaminated. All surgical sponge and instrument counts were correct. MD LE Flor/ELIZA /[id number]
[2019-09-26] MEDS ORDERED: FENTANYL CITRATE/PF 100MCG/2 ML INJ ONE ×2 (11:51→18:40)
[2019-09-26] MEDS ORDERED: MORPHINE SULFATE 2 MG/ML SYR 1ML ONE (12:27)
--- OUTSIDE RECORDS SUMMARY | 2019-09-26 12:33 | XMS REPORT | Continuity of Care Document ---
Author Author [employer] ABIMBOLA Costello [employer] Address Unknown Phone Unavailable Care Team Providers Care Cafe Operator Name Role Phone [facility] [employer] Information Exchange Unavailable Un available Problems Problem Status Onset Date Classification Date Reported Comments Source Open bite of right forearm, initial encounter 03/13/2018 09/23/2018 [facility] Open bite of unspecified upper arm, initial encounter 03/06/2018 09/23/2018 [facility] DOG BITE Active 03/06/2018 [facility] WRIST PAIN Active 12/30/2014 [facility] Discharge Diagnosis: Injury of forearm and wrist 12/30/2014 01/02/2015 [facility] V76.12 - SCREEN MAMMOGRA Active 07/21/2013 DARIANA Morrell 793.8 - ABNORMAL FINDIN Active 07/04/2011 DARIANA Morrell Bitten by dog, initial encounter 09/23/2018 [facility] Hypothyroidism, unspecified 09/23/2018 [facility] Hypothyroidism (disorder) Reso lved Problem 01/2019 [facility] [place] Compression injury of nerve (disorder) Resolved Problem 09/23/2018 [facility] Medications Medication Details Route Status Patient Instructions Ordering Provider Order Date Source Zofran ODT 4 mg, Route: PO, Dr ug form: TABDIS, ONCE, Dosing Weight 93.182, kg, Priority: STAT, Start date: 03/06/18 20:26:00 CDT, Stop date: 03/06/18 20:26:00 CDT Inactive 03/07/2018 [facility] nter tramadol hydrochloride 50 MG Oral Tablet 50 mg = 1 tab, PO, Q6H, PRN Pain, X 5 day, # 20 tab, 0 Refill(s) No Longer Active 03/07/2018 [facility] Amoxicillin 875 MG / Clavulanate 125 MG Oral Tablet [Augmentin 875-mg] 875 mg = 1 tab, PO, BID, X 7 day, # 14 t ab, 0 Refill(s) No Longer Active 03/07/2018 [facility] Acetaminophen 325 MG / Hydrocodone Amy trate 10 MG Oral Tablet [[place] 10/325] Notes: Do not exceed 4gm/day of acetamin ophen. (Same as: [place] 325/10) Inactive 03/06/2018 [facility] Morphine Notes: (Same as:MORPh ine Sulfate) Inactive 03/06/2018 [facility] Zofran Notes: (Same as: Zofran ) MEDICATION WASTE Product Size: 4 mg Product Wasted: 0 mg Inactive 03/06/2018 [facility] nter tramadol hydrochloride 50 MG Oral Tablet [Ultram] 1 - 2 tabs, PO, Q4-6H, PRN .(Type PRN Reason Here...), X 5 day, # 30 tab, 0 Refill(s) Active 12/30/2014 [facility] Allergies, Adverse Reactions, Alerts Substance Category Reaction Severity Reaction type Status Date Reported Comments Source No Known Medication Allergies Assertion Drug aller gy [facility] Immunizations Immunization Date Given Site Status Last Updated Comments Source diphtheria/pertussis, acel/tetanus adult 03/06/2018 Left deltoid completed Jah [facility] Results Order Name Results Value Reference Range [...] should be multiplied by the estimated BMI. [facility] CHEM PANEL Sodium Lvl 140 135 - 145 03/06/2018 [facility] CHEM PANEL Creatinine Lvl 0.97 0.50 - 1.40 03/06/2018 [facility] CHEM PANEL CO2 28 24 - 32 03/06/2018 [facility] CHEM PANEL Chloride Lvl 103 95 - 109 03/06/2018 [facility] CHEM PANEL Potassium Lvl 3.2 3.5 - 5.1 03/06/2018 [facility] CHEM PANEL Calcium Lvl 7.9 8.5 - 10.5 03/06/2018 [facility] CHEM PANEL BUN 7 7 - 22 03/06/2018 [facility] CHEM PANEL Glucose Lvl 196 70 - 99 03/06/2018 [facility] CHEM PANEL AGAP 12.2 10.0 - 20.0 03/06/2018 [facility] HEMATOLOGY Eosinophils # 0.1 0.0 - 0.5 03/06/2018 [facility] HEMATOLOGY Monocytes # 0.3 0.0 - 0.8 03/06/2018 [facility] HEMATOLOGY Lymphocytes 18.5 20.0 - 40.0 03/06/2018 [facility] HEMATOLOGY Monocytes 4.3 2.0 - 12.0 03/06/2018 [facility] HEMATOLOGY Eosinophils 1.2 0.0 - 4.0 03/06/2018 [facility] HEMATOLOGY Basophils 0.5 0.0 - 1.0 03/06/2018 [facility] HEMATOLOGY Segs 75.5 45.0 - 75.0 03/06/2018 [facility] HEMATOLOGY Lymphocytes # 1.1 1.0 - 5.5 03/06/2018 [facility] HEMATOLOGY Neutrophils # 4.7 1.5 - 8.1 03/06/2018 [facility] HEMATOLOGY PTT 28.9 22.9 - 35.8 03/06/2018 [facility] HEMATOLOGY INR 1.00 0.85 - 1.17 03/06/2018 [facility] HEMATOLOGY PT 13.2 12.0 - 14.7 03/06/2018 [facility] HEMATOLOGY WBC 6.2 3.7 - 10.4 03/06/2018 [facility] HEMATOLOGY Hgb 12.2 12.0 - 16.0 03/06/2018 [facility] HEMATOLOGY RBC 3.97 4.20 - 5.40 03/06/2018 [facility] HEMATOLOGY MCH 30.8 27.0 - 31.0 03/06/2018 [facility] HEMATOLOGY Hct 35.6 36.0 - 48.0 03/06/2018 [facility] HEMATOLOGY MCV 89.8 80.0 - 98.0 03/06/2018 [facility] HEMATOLOGY Platelet 131 133 - 450 03/06/2018 [facility] HEMATOLOGY MPV 9.6 7.4 - 10.4 03/06/2018 [facility] HEMATOLOGY MCHC 34.3 32.0 - 36.0 03/06/2018 [facility] HEMATOLOGY RDW 13.6 11.5 - 14.5 03/06/2018 [facility] IMMUNOLOGY CDC HIV 4th GEN Negat jesús *NA* (03/06/18 6:31 PM) Negative 03/06/2018 [facility] Pathology Reports No Data Provided for This [...] or malalignment. No radiopaque foreign body. 03/06/2018 [facility] Hand 3 views DX Right hand ser ies 3 views FINDINGS: There is no evidence for fracture dislocation or any significant soft tissue abnormality. No radiopaque foreign body is visualized. SL:13 12/30/2014 [facility] Wrist 2 views DX Right wrist series 3 views: FINDINGS: There is no evidence for fracture, subluxation or any significant soft tissue abnormality. No significant degenerative change is present and the visualized bones demonstrate normal radiodensity. SL:13 12/30/2014 [facility] Consultation Notes No Data Provided for This Section Discharge Summaries No Data Provided for This Section History and Physicals No Data Provided for This Section Vital Signs Vital Sign Value Date Comments Source Respitory Rate 18 03/07/2018 [facility] Heart Rate 90 03/07/2018 [facility] Temperature Oral (F) 98.2 F 03/07/2018 [facility] Systolic (mm Hg) 115 03/07/2018 [facility] Diastolic (mm Hg) 57 03/07/2018 [facility] BMI Calculated 32.17 03/06/2018 [facility] Weight 93.182 03/06/2018 [facility] Systolic (mm Hg) 175 03/06/2018 [facility] Diastolic (mm Hg) 92 03/06/2018 [facility] Respitory Rate 18 03/06/2018 [facility] Heart Rate 88 03/06/2018 [facility] Height 170.18 cm 03/06/2018 [facility] Temperature Oral (F) 97 F 03/06/2018 [facility] Systolic (mm Hg) 135 12/30/2014 [facility] Diastolic (mm Hg) 81 12/30/2014 [facility] Respitory Rate 20 12/30/2014 [facility] Temperature Oral (F) 98.1 F 12/30/2014 [facility] Heart Rate 85 12/30/2014 [facility] Height 170.18 cm 12/30/2014 [facility] BMI Calculated 32.02 12/30/2014 [facility] Weight 92.727 12/30/2014 [facility] Respitory Rate 18 12/30/2014 [facility] Systolic (mm Hg) 149 12/30/2014 [facility] Diastolic (mm Hg) 90 12/30/2014 [facility] Heart Rate 100 12/30/2014 [facility] Temperature Oral (F) 97.5 F 12/30/2014 [facility] Encounters Location Location Details Encounter Type Encounter Number Reason For Visit Attending Provider ADM Date DC Date Status Source OD [id number] 793.8 - ABNORMAL FINDIN KAYLEE GARCÍA 07/10/2011 [facility] [id number] Deborah Hoyt 12/30/2014 12/30/2014 [facility] [id number] Yary Yen 03/06/2018 03/07/2018 [facility] Procedures No Data Provided for This Section Assessment and Plan No Data Provided for This Section Plan of Care No Data Provided for This Section Social History Social History Date Source Social History TypeResponse Smoking Status Never smoker; Exposure to Tobacco Smoke None; Cigarette Smoking Last 365 Days No; Reg Smoking Cessation Counseling No entered on: 03/06/18 03/06/2018 [facility] Social History TypeResponse Smoking Status Never smoker; Exposure to Tobacco Smoke None; Cigarette Smoking Last 365 Days No; Reg Smoking Cessation Counseling No 12/30/2014 [facility] Family History No Data Provided for This Section Advance Directives No Data Provided for This Section Functional Status No Data Provided for This Section
[2019-09-26] MEDS ORDERED: MEPERIDINE HCL INJ 25 MG/ML VIAL ONE (12:42)
--- NOTE | 2019-09-26 12:50 | NUR ---
patient arrived to room 106. states her abdomen hurts, but appears sleepy. 5 sites to abdomen with dermabond. no drainage. cell phone and hearing aids placed by patient's side so she has them when she wakes up. tm.
[2019-09-26 12:58] VITALS: BP 166/87
--- NOTE | 2019-09-26 14:32 | NUR ---
message left at dr. rubin office regarding patient's uncontrolled pain. will call again if no return page.
--- NOTE | 2019-09-26 14:54 | NUR ---
repaged surgeon. patient states pain is 10/10. assisted patient to ambulate around room to see if that would help with pain. sitting up in recliner at this time.
[2019-09-26] MEDS ORDERED: MORPHINE SULFATE 2 MG/ML SYR 1ML IV STA ×2 (14:58→22:32)
[2019-09-26] MEDS ORDERED: MORPHINE SULFATE INJ 4 MG/ML INJ 1ML IV PRN ×2 (15:15→22:45)
[2019-09-26 16:12] VITALS: BP 137/91
[2019-09-26] MEDS: MORPHINE SULFATE INJ 4 MG/ML INJ 1ML IV PRN ×2 (17:42→22:21)
[2019-09-26] MEDS ORDERED: MIDAZOLAM HCL 2 MG/2 ML VIAL ONE (18:40)
--- NOTE | 2019-09-26 19:15 | NUR ---
BEDSIDE SHIFT REPORT RECEIVED FROM DAY RN. PT IS ALERT AND ORIENTED X3. RESPIRATIONS ARE EVEN AND UNLABORED. PIV 20G LEFT HAND LR INFUSING AT 125ML/HR. SITE HEALTHY.5 TROCHAR SITES ON ABDOMEN- ALL INTACT- NO DRAINAGE. PT UP WALKING IN ROOM. NPOPT HAS ALLERGY TO [place] WILL TELL PHYSICIAN. CALL LIGHT WITHIN REACH. BED LOCKED AND IN LOW POSITION.
[2019-09-26] MEDS ORDERED: PROPOFOL IV EMULSION 10 MG/ML 20 ML VIAL ONE (19:47)
[2019-09-26] MEDS ORDERED: DEXAMETHASONE SOD PHOS INJ 4 MG/ML VIAL ONE (19:47)
[2019-09-26] MEDS ORDERED: ONDANSETRON HCL INJ 2MG/ML 2ML 2 MG/ML VIAL ONE (19:47)
[2019-09-26] MEDS ORDERED: SEVOFLURANE INHAL SOLN 250 ML PEN BTL ONE (19:47)
[2019-09-26] MEDS ORDERED: LIDOCAINE HCL 2% LOCAL INJ 5 ML SDV VIAL INJ ONE (19:47)
[2019-09-26] MEDS ORDERED: ROCURONIUM BROMIDE 10 MG/ML 5ML VIAL IV ONE (19:47)
[2019-09-26 20:00] VITALS: BP 136/83
[2019-09-26] MEDS ORDERED: ENOXAPARIN SOD INJ 40 MG/0.4 ML SYR SC SCH (20:00)
[2019-09-26 21:00] VITALS: BP 136/83
[2019-09-26] MEDS ORDERED: HYDROCODONE/APAP 7.5MG-325MG 1 EA TAB PO PRN (22:45)
[2019-09-26] MEDS ORDERED: ENOXAPARIN SOD INJ 40 MG/0.4 ML SYR SC ONE (22:45)
[2019-09-26] MEDS: ENOXAPARIN SOD INJ 40 MG/0.4 ML SYR SC SCH (23:10)
[2019-09-27 00:52] VITALS: BP 129/68
[2019-09-27] MEDS: MORPHINE SULFATE INJ 4 MG/ML INJ 1ML IV PRN ×2 (02:03→06:10)
[2019-09-27 04:00] VITALS: BP 123/64
[2019-09-27 06:29] LABS: BASOPHILS % 0.2 % (0.0-1.0); EOSINOPHILS % 0.1 % (0.0-6.0); HEMATOCRIT 40.2 % (34.2-44.1); HEMOGLOBIN 13.5 g/dL (12.0-16.0); LYMPHOCYTES # (AUTO) 1.6 (1.0-3.2); LYMPHOCYTES % 17.9 % (18.0-39.1); MEAN CORPUSCULAR HEMOGLOBIN 31.5 pg (28-32); MEAN CORPUSCULAR HGB CONC 33.6 g/dL (31-35); MEAN CORPUSCULAR VOLUME 93.7 fL (81-99); MONOCYTES # (AUTO) 0.6 (0.2-0.8); MONOCYTES % 6.4 % (4.4-11.3); NEUTROPHILS # (AUTO) 6.5 (2.1-6.9); NEUTROPHILS % 75.1 % (38.7-80.0); PLATELET COUNT 136 x10e3/uL (140-360); RED BLOOD COUNT 4.29 x10e6/uL (3.6-5.1); RED CELL DISTRIBUTION WIDTH 12.7 % (11.7-14.4)
[2019-09-27] MEDS: LACTATED RINGER'S 1,000 ML IV SCH ×2 (06:45→14:45)
[2019-09-27 07:03] LABS: ALANINE AMINOTRANSFERASE 127 IU/L (0-55); ALBUMIN 3.5 g/dL (3.5-5.0); ALBUMIN/GLOBULIN RATIO 1.3 (0.8-2.0); ALKALINE PHOSPHATASE 64 IU/L (40-150); ANION GAP 13.1 mmol/L (8-16); BLOOD UREA NITROGEN 10 mg/dL (7-26); BUN/CREATININE RATIO 12 (6-25); CALCIUM 8.6 mg/dL (8.4-10.2); CARBON DIOXIDE 28 mmol/L (22-29); CHLORIDE 101 mmol/L (98-107); CREATININE, SERUM 0.86 mg/dL (0.57-1.11); EST GLOMERULAR FILTRATION RATE > 60 ML/MIN (60-); GLUCOSE 140 mg/dL (74-118); MAGNESIUM 1.7 MG/DL (1.3-2.1); PHOSPHORUS 2.9 MG/DL (2.3-4.7); POTASSIUM 4.1 mmol/L (3.5-5.1); SODIUM 138 mmol/L (136-145)
[2019-09-27] MEDS ORDERED: HYDROCODONE/APAP 7.5MG-325MG 1 EA TAB PO PRN (07:15)
[2019-09-27 07:57] VITALS: BP 117/72
[2019-09-27 08:38] LABS: PLATELET ESTIMATE MODERATELY DECREASED
--- NOTE | 2019-09-27 09:10 | NUR ---
PROGRESS NOTE S: No major complaints; has gassy discomfort O: AF, VSS; General- no distress Abd- soft, incisions c/d/i A/P: POD 1, s/p Lap HH repair with lap sleeve gastrectomy -Ambulate, IS, OOB to chair -Clear liquids -DC home if tolerating liquids and ambulating -F/u in [address] Trammell
[2019-09-27] MEDS ORDERED: SIMETHICONE 80 MG CHEW PO PRN (09:15)
[2019-09-27] MEDS: ENOXAPARIN SOD INJ 40 MG/0.4 ML SYR SC SCH (09:40)
[2019-09-27 10:03] VITALS: BP 117/72
[2019-09-27] MEDS: ACETAMINOPHEN/CODEINE 300MG - 30MG TAB PO PRN ×2 (11:04→15:10)
[2019-09-27 11:52] VITALS: BP 135/70
--- NOTE | 2019-09-27 13:19 | NUR ---
Nutrition Screen Note RD Recommendation for Physician: - Advancement of diet per MD Plan of Care: RD following, monitoring for tolerance and adequacy - Diet education provided 09/26 Nutrition reason for involvement: MD Consult- post op diet progression education Primary Diagnose(s): lap sleeve gastrectomy, DM2, hiatal hernia PMH: GERD, hiatal hernia, DM2, morbid obesity Ht: 67 in Wt: 204 lb BMI: 31.94 kg/m2 IBW: [address] Assessment: (09/26) 49 YOF admitted for hiatal hernia repair and lap sleeve gastrectomy, pt seen today per diet education consult. Pt POD#1 for procedure. Pt receptive to diet education at time of visit. Pt educated on diet progression of clear liquids to full liquids and pureed diets. Pt educated on adequate fluid/water intake and appropriate protein supplementation as well as vitamin and mineral recommendations. Pt educated on dumping syndrome and advised to avoid concentrated sweets. All questions and concerns addressed at time of visit, handouts provided. Chart reviewed. Labs and meds reviewed. Will continue to monitor. Current Diet: clear liquids Malnutrition Evaluation (09/27/19) The patient does not meet criteria for a specified degree of malnutrition at this time. Will re-evaluate at follow-up as appropriate. Diet Education Needs Assessment: Diet education indicated, pt receptive and diet education provided 09/26. Learner(s): pt Barriers: none Cultural/Language Modifications: none Readiness: ready Method: handouts, discussion Topics: post operative lap sleeve gastrectomy diet progression, protein supplements, MVI Understanding/Compliance: fair- mentation 2/2 morphine Diet tolerance: tolerating CL diet Nutrition Care Level: low Signed: Elda Quevedo RD, LD, [facility]
[2019-09-27] MEDS ORDERED: ONDANSETRON HCL 4 MG ORAL DISINTEGRATING TAB PO PRN (13:30)
[2019-09-27 16:30] VITALS: BP 135/75
--- NOTE | 2019-09-27 17:00 | NUR ---
PATIENT DISCHARGED. IV REMOVED. DISCHARGE INSTRUCTIONS GIVEN TO PATIENT. ALL QUESTIONS ANSWERED. PATIENT AMBULATED TO DAUGHTER'S VEHICLE IN STABLE CONDITION.
== END 2019-09-27 17:06 | disposition home or self-care (01) | DRG 621 ==
LOC: OR 06:55 → PACU V 11:30 → OBSVTOIN 11:30 → MED/SURG 12:43
PROC: 0DB64Z3 Excision of Stomach, Percutaneous Endoscopic Approach, Vertical (ICD-10-PCS; principal; 2019-09-26 09:00)
PROC: 0BQT4ZZ Repair Diaphragm, Percutaneous Endoscopic Approach (ICD-10-PCS; 2019-09-26 09:00)
DX: E66.01 Morbid (severe) obesity due to excess calories (principal); Z68.35 Body mass index [BMI] 35.0-35.9, adult; E11.9 Type 2 diabetes mellitus without complications; I10 Essential (primary) hypertension; K21.9 Gastro-esophageal reflux disease without esophagitis; K44.9 Diaphragmatic hernia without obstruction or gangrene; Z88.5 Allergy status to narcotic agent; Z91.013 Allergy to seafood
CPT/HCPCS: 36415; 80048; 80053; 81025; 82948; 83735; 84100; 85025; 87635; 93005; J1100; J1650; J2001; J2175; J2250; J2270; J2405; J3010; J7121

== ENCOUNTER 2019-10-01 14:28 | Emergency (ER) | payer BC ==
[~2019-10-01] VITALS: Ht 170.2 cm; Wt 92.5 kg
--- OUTSIDE RECORDS SUMMARY | 2019-10-01 14:31 | XMS REPORT ---
Author Author [facility] t Organization [facility] Address 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 Name Role Phone DO LISSET LARSEN DO PCP Doctor Unassigned, Name No Attphys Unavailable Ammy Holm MD [facility] Attphys ELIDA LOYD Attphys Unavailable Glendy Yen Attphys Deborah Hoyt Attphys Payers Payer Name Policy Type Policy Number Effective Date Expiration Date [facility] Employees [id number] 2004 00:00:0 0 [facility] [employer] [id number] 2018 00:00:00 [facility] Employees [id number] [facility] Employees [id number] [facility] Employees [id number] [facility] Employees [id number] [facility] [employer] [id number] 2018 00:00:00 [facility] Employees [id number] 2004 00:00:0 0 [facility] Advance Directives Directive Decision Effective Date Termination Date Comments Sour ce Yes N/A [facility] Problems Condition Name Condition Details Condition Category Status Onset Date Resolution Date Last Treatment Date Treating Clinician Comments Source Problem Condition [facility] Allergies, Adverse Reactions, Alerts Allergy Name Allergy Type Status Severity Reaction(s) Onset Date Inacti ve Date Treating Clinician Comments Source Hydrocodone Propensity to adverse reactions Active VOM ITING VIOLENTLY 2019-08-05 00:00:00 [facility] shrimp Allergy to substance Active Mild DIARRHEA, VOMITING 2017-12-25 00:00:00 [facility] Social History Social Habit Start Date Stop Date Quantity Comments Source Sex Assigned At 1970 00:00:00 1970 00:00:00 Female [facility] Medications Ordered Medication Name Filled Medication Name Start Date Stop Da te Current Medication? Ordering Clinician Indication Dosage Frequency Signature (SIG) Comments Components Source Levothyroxine Sodium Levothyroxine Sodium Yes 75 [facility] Omeprazole Omeprazole Yes 40 [facility] Metformin Hcl Metformin Hcl 2019-09-27 00:00:00 No [facility] Metformin Hcl (Metformin Hcl Er) 500 Mg TAB.ER.24 Metf ormin Hcl (Metformin Hcl Er) 500 Mg TAB.ER.24 2019-08-05 00:00:00 No 500 [facility] Metoprolol Tartrate Metoprolol Tartrate 2019-03-24 00:00:00 No 50 [facility] Vital Signs Vital Name Observation Time Observation Value Comments Source Body Temperature 2019-09-27 16:30:00 97.5 [degF] [facility] Weight 2019-09-26 12:59:00 204 [lb_av] [facility] BMI (Body Mass Index) 2019-09-26 12:59:00 32.0 kg/m2 [facility] Procedures Procedure Date / Time Performed Performing Clinician Sourcinda e EGD BIOPSY SINGLE/MULTIPLE 2019-03-28 00:00:00 C [facility] Plan of Care Planned Activity Planned Date Details Comments Source Instructions Post Operative Pain [facility] Encounters Start Date/Time End Date/Time [facility] ID Source 2019-09-26 11:30:00 2019-09-27 17:06:00 Discharged [facility]patient [facility] [id number] [facility] 2019-09-15 00:00:00 2019-09-15 00:00:00 Orders Only D octor Unassigned, [place] [facility] [id number] 2019-09-09 00:00:00 2019-09-09 00:00:00 Telephone Juan Holm [facility] [id number] 2019-08-05 15:29:00 2019-08-05 15:29:00 Registered Clinic [facility] [id number] [facility] 2019-06-29 09:09:00 2019-07-16 22:59:00 Discharged Recurring [facility] [id number] [facility] 2019-03-28 05:02:00 2019-03-28 05:02:00 Registered Surgical Day Care [facility] [id number] [facility] 2018-09-22 15:05:00 2018-10-15 23:59:00 Discharged Recurring [facility] [id number] [facility] 2018-09-01 14:29:00 2018-09-14 23:59:00 Discharged Recurring [facility] [id number] [facility] 2018-07-21 09:34:00 2018-08-15 23:59:00 Discharged Recurring [facility] [id number] [facility] 2018-06-30 01:00:00 2018-07-15 23:59:00 Discharged Recurring [facility] [id number] [facility] 2018-05-19 09:06:00 2018-06-17 23:59:00 Discharged Recurring [facility] [id number] [facility] 2018-05-27 11:15:00 2018-05-27 11:15:00 Registered Clinic 3 RACH ELIDA [facility] [id number] [facility] 2018-04-28 09:19:00 2018-05-17 23:59:00 Discharged Recurring [facility] [id number] [facility] 2018-03-24 11:07:00 2018-04-16 23:59:00 Discharged Recurring [facility] [id number] [facility] 2018-03-06 17:24:00 2018-03-06 20:32:00 Outpatient Yary Yen [facility] [id number] [facility] 2018-03-06 17:24:00 2018-03-06 17:24:00 Emergency E [facility] [address] [facility] 2017-12-31 11:58:00 2017-12-31 11:58:00 Registered Surgical Day Care [facility] [id number] [facility] 2014-12-30 12:31:00 2014-12-30 14:29:00 Outpatient Deborah Hoyt [facility] [id number] [facility] Results Test Description Test Time Test Comments Results Result Comments Source Capillary blood glucose measurement by glucometer (mas s/volume) 2019-09-27 15:33:00 Test Item Bedside Glucose (test code = 27988-8) 124 [facility] automated count (number/volume)2019-09-27 06:15:00* Test Item Value Reference Range Interpretation Comments White Blood Count (test code = 6690-2) 8.71 [facility] erythrocytes automated count (number/volume)2019-09-27 06:15:00* Test Item Value Reference Range Interpretation Comments Red Blood Count (test code = 789-8) 4.29 [facility] hemoglobin measurement (moles/volume)2019-09-27 06:15:00* Test Item Value Reference Range Interpretation Comments Hemoglobin (test code = 39551-6) 13.5 [facility] hematocrit (volume fraction)2019-09-27 06:15:00* Test Item Value Reference Range Interpretation Comments Hematocrit (test code = 4544-3) 40.2 [facility] erythrocyte mean corpuscular [id number] 06:15:00* Test Item Value Reference Range Interpretation Comments Mean Corpuscular Volume (test code = 787-2) 93.7 [facility] erythrocyte mean corpuscular hemoglobin (mass per erythrocyte)2019-09-27 06:15:00* Test Item Value Reference Range Interpretation Comments Mean Corpuscular Hemoglobin (test code = 785-6) 31.5 [facility]field[facility] erythrocyte mean corpuscular hemoglobin concentration measurement (mass/volume)2019-09-27 06:15:00* Test Item Value Reference Range Interpretation Comments Mean Corpuscular Hemoglobin Concent (test code = 786-4) 33.6 [facility]fieldRDW WhlPg-Mft5014-55-12 06:15:00* Test Item Value Reference Range Interpretation Comments Red Cell Distribution Width (test code = 18780-0) 12.7 [facility]field[facility] blood platelet count (count/volume)2019-09-27 06:15:00* Test Item Value Reference Range Interpretation Comments Platelet Count (test code = 777-3) 136 [facility]field[facility] blood segmented neutrophil count as percentage of total uacvpvwsvm5974-22-14 06:15:00* Test Item Value Reference Range Interpretation Comments Neutrophils (%) (Auto) (test code = 38964-1) 75.1 [facility]field[facility] blood lymphocyte count as percentage ot total owbthuzhfk5399-49-64 06:15:00* Test Item Value Reference Range Interpretation Comments Lymphocytes (%) (Auto) (test code = 736-9) 17.9 [facility]field[facility] blood monocyte count as percentage of total rphubiiogq0301-82-51 06:15:00* Test Item Value Reference Range Interpretation Comments Monocytes (%) (Auto) (test code = 5905-5) 6.4 [facility]fieldAut[facility] blood eosinophil count as percentage of total msnjwxbznf0503-46-73 06:15:00* Test Item Value Reference Range Interpretation Comments Eosinophils (%) (Auto) (test code = 713-8) 0.1 [facility] basophil count as percentage of total yiyboixzli0586-87-98 06:15:00* Test Item Value Reference Range Interpretation Comments Basophils (%) (Auto) (test code = 706-2) 0.2 [facility]fieldFluoroscopic procedure less than one hour tzxkcqce0401-66-61 06:15:00* Test Item Value Reference Range Interpretation Comments IM GRANULOCYTES % (test code = IM GRANULOCYTES %) 0.3 [facility]field[facility] blood neutrophil count 2019-09-27 06:15:00* Test Item Value Reference Range Interpretation Comments Neutrophils # (Auto) (test code = 751-8) 6.5 [facility] lymphocytes count (number/volume) 2019-09-27 06:15:00* Test Item Value Reference Range Interpretation Comments Lymphocytes # (Auto) (test code = 72527-9) 1.6 [facility] monocytes automated count (number/volume)2019-09-27 06:15:00* Test Item Value Reference Range Interpretation Comments Monocytes # (Auto) (test code = 742-7) 0.6 [facility] blood eosinophil count 2019-09-27 06:15:00* Test Item Value Reference Range Interpretation Comments Eosinophils # (Auto) (test code = 711-2) 0.0 [facility] blood basophil count (count/volume)2019-09-27 06:15:00* Test Item Value Reference Range Interpretation Comments Basophils # (Auto) (test code = 704-7) 0.0 [facility]fieldFluoroscopic procedure less than one hour wcbkzqun0741-50-66 06:15:00* Test Item Value Reference Range Interpretation Comments Absolute Immature Granulocyte (auto (medina t code = Absolute Immature Granulocyte (auto) 0.03 [facility] platelets count by estimate (number/volume)2019-09-27 06:15:00* Test Item Value Reference Range Interpretation Comments Platelet Estimate (test code = 33696-7) MODERATELY DECREASED [facility] sodium [facility] (moles/volume)2019-09-27 06:15:00* Test Item Value Reference Range Interpretation Comments Sodium Level (test code = 2951-2) 138 [facility] potassium measurement (moles/volume)2019-09-27 06:15:00* Test Item Value Reference Range Interpretation Comments Potassium Level (test code = 2823-3) 4.1 [facility] chloride measurement (moles/volume)2019-09-27 06:15:00* Test Item Value Reference Range Interpretation Comments Chloride Level (test code = 2075-0) 101 [facility] carbon dioxide, total measurement (moles/volume)2019-09-27 06:15:00* Test Item Value Reference Range Interpretation Comments Carbon Dioxide Level (test code = 2028-9) 28 [facility] anion ecy1656-91-66 06:15:00* Test Item Value Reference Range Interpretation Comments Anion Gap (test code = 15244-4) 13.1 [facility] urea nitrogen measurement (mass/volume)2019-09-27 06:15:00* Test Item Value Reference Range Interpretation Comments Blood Urea Nitrogen (test code = 3094-0) 10 [facility] creatinine measurement (mass/volume)2019-09-27 06:15:00* Test Item Value Reference Range Interpretation Comments Creatinine (test code = 2160-0) 0.86 [facility] urea nitrogen/creatinine mass nmptq1853-59-82 06:15:00* Test Item Value Reference Range Interpretation Comments BUN/Creatinine Ratio (test code = 3097-3) 12 [facility]fieldEstimated glomerular filtration rate (GFR) xyahzeftkvmoa7950-51-99 06:15:00* Test Item Value Reference Range Interpretation Comments Estimat Glomerular Filtration Rate (test code = 167507386) > 60 [facility]fieldGlucose tjfchubxmsq3923-89-16 06:15:00* Test Item Value Reference Range Interpretation Comments Glucose Level (test code = OIC3234) 140 [facility] calcium measurement (mass/volume)2019-09-27 06:15:00* Test Item Value Reference Range Interpretation Comments Calcium Level (test code = 67611-2) 8.6 [facility]fieldPhosphorus pboijaoxnyq2583-41-96 06:15:00 * Test Item Value Reference Range Interpretation Comments Phosphorus Level (test code = POL3429) 2.9 [facility] magnesium measurement (mass/volume)2019-09-27 06:15:00* Test Item Value Reference Range Interpretation Comments Magnesium Level (test code = 37506-0) 1.7 [facility] total bilirubin measurement (mass/volume)2019-09-27 06:15:00* Test Item Value Reference Range Interpretation Comments Total Bilirubin (test code = 1975-2) 1.6 [facility]fieldFluoroscopic procedure less than one hour owtjjuox6633-41-48 06:15:00* Test Item Value Reference Range Interpretation Comments Aspartate Amino Transf (AST/SGOT) (test code = Aspartate Amino Transf (AST/SGOT)) 121 [facility] alanine aminotransferase measurement (enzymatic activity/volume)2019-09-27 06:15:00* Test Item Value Reference Range Interpretation Comments Alanine Aminotransferase (ALT/SGPT) (test code = 1742-6) 127 [facility] protein measurement (mass/volume)2019-09-27 06:15:00* Test Item Value Reference Range Interpretation Comments Total Protein (test code = 2885-2) 6.2 [facility] albumin measurement (mass/volume)2019-09-27 06:15:00* Test Item Value Reference Range Interpretation Comments Albumin (test code = 1751-7) 3.5 [facility] globulin measurement (mass/volume) 2019-09-27 06:15:00* Test Item Value Reference Range Interpretation Comments Globulin (test code = 64642-6) 2.7 [facility] albumin/globulin mass ykeyy8823-06-78 06:15:00* Test Item Value Reference Range Interpretation Comments Albumin/Globulin Ratio (test code = 1759-0) 1.3 [facility] alkaline phosphatase measurement (enzymatic activity/volume)2019-09-27 06:15:00* Test Item Value Reference Range Interpretation Comments Alkaline Phosphatase (test code = 6768-6) 64 [facility]fieldUrine human chorionic gonadotropin (hCG) uktlqihcl5095-10-23 07:10:00* Test Item Value Reference Range Interpretation Comments Urine Test (test code = 2106-3) NEGATIVE [facility]fieldFluoroscopic procedure less than one hour jsvdfgvw6455-33-29 15:10:00* Test Item Value Reference Range Interpretation Comments Coronavirus (PCR) (test code = Coronavirus (PCR)) NOT DETECTED [facility]fieldFORE[facility] RIGHT 2 [id number] 12:04:00 [facility] [address] [place] [address] Patient Name: ABIMBOLA HENDRIX MR #: [id number] : [birth year] Age/Sex: 47/F Req #: [id number] Adm Physician: Ordered by: ELIDA LOYD MD Report #: [id number] Location: RAD Room/Bed: Procedure: [id number] DX /FOREARM RIGHT 2 VIEW Exam Date: 05/27/18 Exam Time: 1130 REPORT STATUS: Signed Exam : right forearm AP and lateral. History: Status post dog bite Compar bethany: None. Findings: There is normal bone mineralization. No acute, disp laced fracture or dislocation. Joint spaces preserved. No abnormal soft tissue calcification or soft tissue defect. No soft tissue swelling or significant soft tissue defect. Impression: 1. No acute abnormalities. Sign ed by: Dr. Ravin Garcia M.D. on 05/27/2018 12:04 PM Dictated By: OTONIEL GARCIA MD 1204 Tr anscribed By: JADEN on 05/27/184 COPY TO: ELIDA LOYD MD WRIST COMPLETE [id number] 12:03:00 [place] [address] Patient Name: ABIMBOLA HENDRIX MR #: [id number] : 1970 Age/Sex: 47/F Req #: [id number] Adm Physician: Ordered by: ELIDA LOYD MD Report #: [id number] Location: [facility] Room/Bed: Procedure: [id number] DX /WRIST COMPLETE RIGHT Exam Date: 05/27/18 Exam Time: 1130 REPORT STATUS: Signed Exam : Right wrist Series. History: Status post dog bite Comparison: None . Findings: 3 views of the right wrist. There is normal bone mineralizatio n. Negative for acute, displaced fracture or dislocation. The joint spaces ar e preserved. No abnormal soft tissue calcification or mass. No soft tissue swelling or soft tissue defect.. Impression: 1. Unremarkable right wr ist series. Signed by: Dr. Ravin Garcia M.D. on 05/27/2018 12:04 PM Dictated By: RAVIN GARCIA MD 1204 Transcribed By: JADEN on 05/27/18 1204 COPY TO: ELIDA BURCH MD
--- OUTSIDE RECORDS SUMMARY | 2019-10-01 14:31 | XMS REPORT | Continuity of Care Document ---
Author Author [employer] Headroom Address Unknown Phone Unavailable Care Team Providers Care Lift Supervisor Name Role Phone [facility] [employer] Unavailable Un available Problems Problem Status Onset Date Classification Date Reported Comments Source Open bite of right forearm, initial encounter 03/13/2018 09/23/2018 [facility] Open bite of unspecified upper arm, initial encounter 03/06/2018 09/23/2018 [facility] DOG BITE Active 03/06/2018 [facility] WRIST PAIN Active 12/30/2014 [facility] Discharge Diagnosis: Injury of forearm and wrist 12/30/2014 01/02/2015 [facility] V76.12 - SCREEN MAMMOGRA Active 07/21/2013 DARIANA Morrell 793.8 - ABNORMAL FINDIN Active 07/04/2011 DARIANA Morrell Bitten by dog, initial encounter 09/23/2018 [facility] Hypothyroidism, unspecified 09/23/2018 [facility] Hypothyroidism (disorder) Reso lved Problem 01/2019 [facility] out[place] Compression injury of nerve (disorder) Resolved Problem 09/23/2018 [facility] Medications Medication Details Route Status Patient Instructions Ordering Provider Order Date Source Zofran ODT 4 mg, Route: PO, Dr ug form: TABDIS, ONCE, Dosing Weight 93.182, kg, Priority: STAT, Start date: 03/06/18 20:26:00 CDT, Stop date: 03/06/18 20:26:00 CDT Inactive 03/07/2018 [facility] nter tramadol hydrochloride 50 MG Oral Tablet 50 mg = 1 tab, PO, Q6H, PRN Pain, X 5 day, # 20 tab, 0 Refill(s) No Longer Active 03/07/2018 [facility] Amoxicillin 875 MG / Clavulanate 125 MG Oral Tablet [Augmentin 875-mg] 875 mg = 1 tab, PO, BID, X 7 day, # 14 t ab, 0 Refill(s) No Longer Active 03/07/2018 [facility] Acetaminophen 325 MG / Hydrocodone Amy trate 10 MG Oral Tablet [Modale 10/325] Notes: Do not exceed 4gm/day of acetamin ophen. (Same as: Modale 325/10) Inactive 03/06/2018 [facility] Morphine Notes: (Same as:MORPh ine Sulfate) Inactive 03/06/2018 [facility] Zofran Notes: (Same as: Zofran ) MEDICATION WASTE Product Size: 4 mg Product Wasted: 0 mg Inactive 03/06/2018 [facility] nter tramadol hydrochloride 50 MG Oral Tablet [Ultram] 1 - 2 tabs, PO, Q4-6H, PRN .(Type PRN Reason Here...), X 5 day, # 30 tab, 0 Refill(s) Active 12/30/2014 [facility] Allergies, Adverse Reactions, Alerts Substance Category Reaction Severity Reaction type Status Date Reported Comments Source No Known Medication Allergies Assertion Drug aller gy [facility] Immunizations Immunization Date Given Site Status Last Updated Comments Source diphtheria/pertussis, acel/tetanus adult 03/06/2018 Left deltoid completed Jah [facility] Results Order Name Results Value Reference Range [...] should be multiplied by the estimated BMI. [facility] CHEM PANEL Sodium Lvl 140 135 - 145 03/06/2018 [facility] CHEM PANEL Creatinine Lvl 0.97 0.50 - 1.40 03/06/2018 [facility] CHEM PANEL CO2 28 24 - 32 03/06/2018 [facility] CHEM PANEL Chloride Lvl 103 95 - 109 03/06/2018 [facility] CHEM PANEL Potassium Lvl 3.2 3.5 - 5.1 03/06/2018 [facility] CHEM PANEL Calcium Lvl 7.9 8.5 - 10.5 03/06/2018 [facility] CHEM PANEL BUN 7 7 - 22 03/06/2018 [facility] CHEM PANEL Glucose Lvl 196 70 - 99 03/06/2018 [facility] CHEM PANEL AGAP 12.2 10.0 - 20.0 03/06/2018 [facility] HEMATOLOGY Eosinophils # 0.1 0.0 - 0.5 03/06/2018 [facility] HEMATOLOGY Monocytes # 0.3 0.0 - 0.8 03/06/2018 [facility] HEMATOLOGY Lymphocytes 18.5 20.0 - 40.0 03/06/2018 [facility] HEMATOLOGY Monocytes 4.3 2.0 - 12.0 03/06/2018 [facility] HEMATOLOGY Eosinophils 1.2 0.0 - 4.0 03/06/2018 [facility] HEMATOLOGY Basophils 0.5 0.0 - 1.0 03/06/2018 [facility] HEMATOLOGY Segs 75.5 45.0 - 75.0 03/06/2018 [facility] HEMATOLOGY Lymphocytes # 1.1 1.0 - 5.5 03/06/2018 [facility] HEMATOLOGY Neutrophils # 4.7 1.5 - 8.1 03/06/2018 [facility] HEMATOLOGY PTT 28.9 22.9 - 35.8 03/06/2018 [facility] HEMATOLOGY INR 1.00 0.85 - 1.17 03/06/2018 [facility] HEMATOLOGY PT 13.2 12.0 - 14.7 03/06/2018 [facility] HEMATOLOGY WBC 6.2 3.7 - 10.4 03/06/2018 [facility] HEMATOLOGY Hgb 12.2 12.0 - 16.0 03/06/2018 [facility] HEMATOLOGY RBC 3.97 4.20 - 5.40 03/06/2018 [facility] HEMATOLOGY MCH 30.8 27.0 - 31.0 03/06/2018 [facility] HEMATOLOGY Hct 35.6 36.0 - 48.0 03/06/2018 [facility] HEMATOLOGY MCV 89.8 80.0 - 98.0 03/06/2018 [facility] HEMATOLOGY Platelet 131 133 - 450 03/06/2018 [facility] HEMATOLOGY MPV 9.6 7.4 - 10.4 03/06/2018 [facility] HEMATOLOGY MCHC 34.3 32.0 - 36.0 03/06/2018 [facility] HEMATOLOGY RDW 13.6 11.5 - 14.5 03/06/2018 [facility] IMMUNOLOGY CDC HIV 4th GEN Negat jesús *NA* (03/06/18 6:31 PM) Negative 03/06/2018 [facility] Pathology Reports No Data Provided for This [...] or malalignment. No radiopaque foreign body. 03/06/2018 [facility] Hand 3 views DX Right hand ser ies 3 views FINDINGS: There is no evidence for fracture dislocation or any significant soft tissue abnormality. No radiopaque foreign body is visualized. SL:13 12/30/2014 [facility] Wrist 2 views DX Right wrist series 3 views: FINDINGS: There is no evidence for fracture, subluxation or any significant soft tissue abnormality. No significant degenerative change is present and the visualized bones demonstrate normal radiodensity. SL:13 12/30/2014 [facility] Consultation Notes No Data Provided for This Section Discharge Summaries No Data Provided for This Section History and Physicals No Data Provided for This Section Vital Signs Vital Sign Value Date Comments Source Respitory Rate 18 03/07/2018 [facility] Heart Rate 90 03/07/2018 [facility] Temperature Oral (F) 98.2 F 03/07/2018 [facility] Systolic (mm Hg) 115 03/07/2018 [facility] Diastolic (mm Hg) 57 03/07/2018 [facility] BMI Calculated 32.17 03/06/2018 [facility] Weight 93.182 03/06/2018 [facility] Systolic (mm Hg) 175 03/06/2018 [facility] Diastolic (mm Hg) 92 03/06/2018 [facility] Respitory Rate 18 03/06/2018 [facility] Heart Rate 88 03/06/2018 [facility] Height 170.18 cm 03/06/2018 [facility] Temperature Oral (F) 97 F 03/06/2018 [facility] Systolic (mm Hg) 135 12/30/2014 [facility] Diastolic (mm Hg) 81 12/30/2014 [facility] Respitory Rate 20 12/30/2014 [facility] Temperature Oral (F) 98.1 F 12/30/2014 [facility] Heart Rate 85 12/30/2014 [facility] Height 170.18 cm 12/30/2014 [facility] BMI Calculated 32.02 12/30/2014 [facility] Weight 92.727 12/30/2014 [facility] Respitory Rate 18 12/30/2014 [facility] Systolic (mm Hg) 149 12/30/2014 [facility] Diastolic (mm Hg) 90 12/30/2014 [facility] Heart Rate 100 12/30/2014 [facility] Temperature Oral (F) 97.5 F 12/30/2014 [facility] Encounters Location Location Details Encounter Type Encounter Number Reason For Visit Attending Provider ADM Date DC Date Status Source OD [id number] 793.8 - ABNORMAL FINDIN KAYLEE GARCÍA 07/10/2011 [id number] Deborah Hoyt 12/30/2014 12/30/2014 [facility] [id number] Yary Yen 03/06/2018 03/07/2018 [facility] Procedures No Data Provided for This Section Assessment and Plan No Data Provided for This Section Plan of Care No Data Provided for This Section Social History Social History Date Source Social History TypeResponse Smoking Status Never smoker; Exposure to Tobacco Smoke None; Cigarette Smoking Last 365 Days No; Reg Smoking Cessation Counseling No entered on: 03/06/18 03/06/2018 [facility] Social History TypeResponse Smoking Status Never smoker; Exposure to Tobacco Smoke None; Cigarette Smoking Last 365 Days No; Reg Smoking Cessation Counseling No 12/30/2014 [facility] Family History No Data Provided for This Section Advance Directives No Data Provided for This Section Functional Status No Data Provided for This Section
--- NOTE | 2019-10-01 14:55 | Emergency Department Note ---
History of Present Illnes History of Present Illness Chief Complaint: General Medicine Complaints History of Present Illness This is a 49 year old female . c/o burred vision since leaving hospital post gastric by pass hiatal hernia - denies floaters / eye pain / loss of vision c/o slight headache Historian: Patient Arrival Mode: Car Onset (how long ago): day(s) (5 days) Radiation: non-radiation Severity: unable to specify Onset quality: gradual Timing of current episode: constant Progression: worsening Context: recent surgery Relieving factors: none Exacerbating factors: none Associated symptoms: denies other symptoms Treatments prior to arrival: none Past Medical/Family History Physician Review I have reviewed the patient's past medical and family history. Any updates have been documented here. Past Medical History Recent Fever: No Clinical Suspicion of Infectio: No New/Unexplained Change in Ment: No Past Medical History: Hypertension, Diabetes Past Surgical History: Hernia Repair Other Surgery: gatric bypass Social History Smoking Cessation: Never Smoker Alcohol Use: None Any Illegal Drug Use: No TB Exposure/Symptoms: No Physically hurt or threatened: No Family History Family history of heart diseas: No Other Any Pre-Existing Lines (PICC,: No Review of Systems Review of Systems Constitutional: as per HPI; no symptoms, chills, diaphoresis, fever, malaise, weakness, other EENTM: blurred vision; no symptoms, eye pain, tearing, double vision, ear pain, ear discharge, nose pain, nose congestion, throat pain, throat swelling, mouth pain, mouth swelling, other Cardiovascular: no symptoms; chest pain, edema, palpitations, syncope, other Respiratory: no symptoms; change in phlegm color, chest congestion, cough, hemoptysis, excessive phlegm production, pain on inspiration, pain with cough, dyspnea, dyspnea on exertion, snoring, stridor, wheezing, other Gastrointestinal: no symptoms; abdominal pain, constipation, diarrhea, nausea, vomiting, other Genitourinary: no symptoms; discharge, dysuria, frequency, hematuria, pain, other Musculoskeletal: no symptoms; back pain, gout, joint pain, joint swelling, muscle pain, muscle stiffness, neck pain, other Neurological: headache (slight); no symptoms, numbness, paresthesia, pre-existing deficit, seizure, tingling, tremors, weakness, other Psychological: no symptoms; anxiety, depressed, emotional problems, other Endocrine: no symptoms; excessive sweating, flushing, intolerance to cold, intolerance to heat, increased hunger, increased thirst, increased urination, unexplained weight gain, unexplained weight loss, other Hematological/Lymphatic: no symptoms; anemia, blood clots, easy bleeding, easy bruising, swollen glands, other Review of other systems All other systems reviewed and negative. Physical Exam Related Data Allergies: Coded Allergies: shrimp (Verified Allergy, Mild, DIARRHEA, VOMITING, 12/25/17) hydrocodone (Verified Adverse Reaction, Unknown, VOMITING VIOLENTLY, 08/05/19) Physical Exam CONSTITUTIONAL Constitutional: well-developed, well-nourished HENT HENT: normocephalic, atraumatic, oropharynx clear/moist, oropharynx normal, nose normal HENT L/R: left ext ear normal, right ext ear normal EYES Eyes: PERRL, conjunctivae normal, EOM normal, lids normal; left eye discharge, right eye discharge, scleral icterus NECK Neck: ROM normal PULMONARY Pulmonary: effort normal, breath sounds normal CARDIOVASCULAR Cardiovascular: regular rhythm, heart sounds normal, capillary refill normal, normal rate GASTROINTESTINAL Abdominal: soft, nontender, bowel sounds normal GENITOURINARY Genitourinary: exam deferred SKIN Skin: warm, dry MUSCULOSKELETAL Musculoskeletal: ROM normal NEUROLOGICAL Neurological: alert, oriented x 3, no gross motor or sensory deficits PSYCHOLOGICAL Psychological: mood/affect normal, judgement normal Exam - additional comments denies eye pain / floaters / spots / loss of vision pt describes only blurred vision that seems to be getting worse over past 5 days Results Imaging Imaging results reviewed: Yes Impressions CT BRAIN IMPRESSION: Normal head CT. Signed by: Dr. Khushi Moreau M.D. on 10/01/2019 3:31 PM Critical Care Time Subsequent provider I assumed direction of critical care for this patient from another provider of my specialty. Assessment & Plan Assessment & Plan Problems: (1) Blurred vision, bilateral Assessment & Plan 49y f presented to ed c/o blurred vision x 5 days / denies eye pain / floaters / spots / loss of vision - reports slight headache discussed pt presentation plan of care w/ Dr Zaragoza - ct brain ordered / pt medicated w/ tylenol visual acuity 20/20 right 20/30 left 20/[address] Zaragoza in eval pt status Dr Zaragoza spoke w/ Dr Herrera duong will f/u pt in office Depart Disposition: HOME, SELF-[facility] Meds Reported Medications Omeprazole (OMEPRAZOLE) 40 Mg Capsule., 40 MG PO DAILY 12/25/17 Levothyroxine Sodium (LEVOTHYROXINE SODIUM) 25 Mcg Tablet, 75 MCG PO DAILY 09/28/15 Discontinued Reported Medications Metformin Hcl (METFORMIN HCL) 500 Mg Tablet, PO BID, #60 TAB 09/21/19 DOYLE INMAN [employer] October 01, 2019 14:55
[2019-10-01] MEDS ORDERED: ACETAMINOPHEN 325 MG TAB PO NR (15:15)
--- NOTE | 2019-10-01 15:34 | Diagnostic Imaging Report ---
EXAMINATION: Head CT HISTORY:Rapid vision loss COMPARISON: None. TECHNIQUE: Helical axial images of the head were obtained. Reformatted coronal and sagittal images from the axial data. Dose modulation, iterative reconstruction, and/or weight based adjustment of the mA/kV was utilized to reduce the radiation dose to as low as reasonably achievable. Image quality: Motion/streaking artifact limits the evaluation of the skull base and posterior cranial fossa. FINDINGS: Parenchyma: 1. No abnormal densities. 2. No mass or hemorrhage. No CT evidence of acute territorial vascular insult. Extra-axial spaces:No abnormal density. No extra-axial fluid collections Brain volume: Normal for age. Ventricles: No hydrocephalus or displacement. Arteries: No density suggestive of thrombus. Dural sinuses: No abnormal density. Foramen magnum: No mass, Chiari malformation, or basilar invagination. Sella: No obvious mass. Paranasal/mastoid sinuses: Imaged portions unremarkable. Skull/Scalp: No lytic or blastic lesions. No fractures. IMPRESSION: Normal head CT. Signed by: Dr. Khushi Moreau M.D. on 10/01/2019 3:31 PM
== END 2019-10-01 16:07 | disposition home or self-care (01) ==
LOC: ER 14:28
DX: H53.8 Other visual disturbances (principal); R51 Headache; E11.65 Type 2 diabetes mellitus with hyperglycemia; I10 Essential (primary) hypertension; Z98.84 Bariatric surgery status
CPT/HCPCS: 70450; 99282

== ENCOUNTER → 2019-10-24 | Outpatient (CLI) | payer BC ==
--- NOTE | 2019-10-24 08:57 | Diagnostic Imaging Report ---
EXAM: US LIVER DATE: 10/24/2019 7:56 AM INDICATION: Elevated LFTs COMPARISON: None FINDINGS: The visualized pancreas appears unremarkable. The liver is normal in size measuring 16.0 cm in length. Hepatic echogenicity is mildly increased diffusely. No focal hepatic abnormality is identified. The main portal vein is patent with antegrade flow and diameter of 1.4 cm. The gallbladder is unremarkable. There is no evidence for cholelithiasis, gallbladder wall thickening, or pericholecystic fluid. There is no intra or extra hepatic biliary ductal dilatation. The common bile duct measures 4 mm. Sonographic Belcher's sign is negative. The right kidney is normal in size measuring 12.6 cm in length with normal cortical thickness/echogenicity. There is no evidence for solid renal mass, hydronephrosis, or shadowing calcified within the right kidney. The visualized portions of the IVC and aorta are within normal limits. There is no ascites visualized within the right upper quadrant. IMPRESSION: Mildly increased hepatic echogenicity which can be seen in the setting of hepatic steatosis. Otherwise, unremarkable right upper quadrant ultrasound examination. Signed by: Dr. Wallace Downs MD on 10/24/2019 8:54 AM
== END ==
LOC: US 07:41
PROVIDERS: ATTEND Family Medicine
DX: R74.8 Abnormal levels of other serum enzymes (principal)
CPT/HCPCS: 76705

== ENCOUNTER 2019-10-28 15:10 | Outpatient (RCR) | payer OTHER | END 2019-11-15 | LOC: OT 15:10 | PROVIDERS: ATTEND Family Medicine | DX: R29.898 Other symptoms and signs involving the musculoskeletal system (principal); M79.641 Pain in right hand; M79.631 Pain in right forearm; M25.631 Stiffness of right wrist, not elsewhere classified; R53.1 Weakness ==